=== PATIENT | female | born 1945 | race Caucasian/White ===

== ENCOUNTER 2018-06-27 12:03 | Outpatient (CLI) | payer MEDICARE, BC, SELFPAY ==
[2018-06-27 12:23] LABS: HCT 40.1 % (36.0-46.0); HGB 14.1 g/dL (12.0-15.5); Mean Corp. HGB Concentration 35.2 g/dL (32.0-36.0); Mean Corpuscular Hemoglobin 30.8 pg (27.0-33.0); Mean Corpuscular Volume 87.6 fL (80-95); Mean Platelet Volume 9.6 fL (8.0-11.0); Platelet Count 239 x1000/uL (130-400); RBC 4.58 m/cumm (4.00-5.20); RBC Distribution Width 12.1 % (11.7-14.6); White Blood Cell Count 6.37 k/cumm (4.4-10.8)
[2018-06-27 12:42] LABS: CREATININE 0.86 mg/dL (0.55-1.02); Cholesterol 255 mg/dL (50-200); Glucose 110 mg/dL (70-100); HDL Cholesterol 34 mg/dL (40-60); LDL CHOLESTEROL 140 mg/dL (<100); TSH 2.42 uIU/mL (0.358-3.74); Triglyceride 345 mg/dL (30-150)
[2018-06-28 13:37] LABS: ANA Interpretation Negative (NEGAT)
== END 2018-06-27 12:23 ==
PROVIDERS: PCP Family Medicine; Visit Provider Otolaryngology Otolaryngology/Facial Plastic Surgery
DX: R42 Dizziness and giddiness (principal); H69.83 Other specified disorders of Eustachian tube, bilateral; H93.13 Tinnitus, bilateral; H90.3 Sensorineural hearing loss, bilateral; E78.5 Hyperlipidemia, unspecified
CPT/HCPCS: 36415; 80061; 82947; 83721; 85027; 82565; 84443; 86038

== ENCOUNTER → 2018-07-08 08:53 | Outpatient (BNVA) | payer MEDICARE, BC, SELFPAY | PROVIDERS: PCP Family Medicine; Visit Provider Urology | DX: Z87.440 Personal history of urinary (tract) infections (principal) | CPT/HCPCS: 99213 ==

== ENCOUNTER 2018-08-17 10:58 | Outpatient (CLI) | payer MEDICARE, BC, SELFPAY ==
--- NOTE | 2018-08-17 10:45 | DI.RAD_ITS ---
SYMPTOM/DIAGNOSIS: SHOULDER AND HIP PAIN RIGHT SHOULDER: Two views. There are moderate hypertrophic changes seen at the acromioclavicular joint. There are mild degenerative changes seen at the greater tuberosity. The glenohumeral joint appears well maintained. The bones are intact. The soft tissues are unremarkable. IMPRESSION: Osteoarthritis of the right shoulder. RIGHT HIP: Two views. In the right hip, there are small osteophytes and subchondral sclerosis of the acetabulum. The hip joint is otherwise well maintained. At the inferior aspect of the image in the right femur, there is a question of a lucent lesion. Xray of the right femur is recommended for further evaluation. The soft tissues are unremarkable. Mild degenerative changes are also noted in the left hip. IMPRESSION: 1. Mild osteoarthritis of the right hip. 2. Question of a lucent lesion incompletely imaged in the right femoral shaft. Xray of the right femur is recommended for further evaluation.
== END 2018-08-17 11:18 ==
PROVIDERS: PCP Family Medicine; Referring Provider Family Medicine; Visit Provider Orthopaedic Surgery
DX: M25.511 Pain in right shoulder (principal); M25.551 Pain in right hip; M19.011 Primary osteoarthritis, right shoulder; M16.11 Unilateral primary osteoarthritis, right hip
CPT/HCPCS: 99201; 99213; 73030; 73502

== ENCOUNTER → 2018-09-15 09:04 | Outpatient (BNVA) | payer MEDICARE, BC, SELFPAY | PROVIDERS: PCP Family Medicine; Referring Provider Family Medicine; Visit Provider Orthopaedic Surgery | DX: M25.511 Pain in right shoulder (principal); R52 Pain, unspecified; M75.81 Other shoulder lesions, right shoulder; M70.61 Trochanteric bursitis, right hip | CPT/HCPCS: 20610; 99213; J1040 ==

== ENCOUNTER → 2018-10-27 09:06 | Outpatient (BNVA) | payer MEDICARE, BC, SELFPAY | PROVIDERS: PCP Family Medicine; Referring Provider Family Medicine; Visit Provider Orthopaedic Surgery | DX: M25.511 Pain in right shoulder (principal); M25.561 Pain in right knee; M25.512 Pain in left shoulder; M70.61 Trochanteric bursitis, right hip; M75.81 Other shoulder lesions, right shoulder; Z98.890 Other specified postprocedural states | CPT/HCPCS: 99213 ==

== ENCOUNTER 2018-10-31 01:03 | Outpatient (CLI) | payer MEDICARE, BC, SELFPAY ==
--- NOTE | 2018-10-31 13:27 | DI.CT_ITS ---
SYMPTOMS/DIAGNOSIS: THORACIC AORTIC ANEURYSM, LAST DIAMETER 4.2 CM W/O RUPTURE, I71.2 CT ANGIOGRAPHY OF THE CHEST: CT angiography was performed with multi slice acquisition and multi planar and 3D reconstruction. CT angiography of the chest was performed according to protocol. Comparison is 10/11/17. There is minimal atherosclerosis of the thoracic aorta. The transverse diameter of the ascending thoracic aorta is 4.3 cm. This compares with 4.2 cm on the prior examination. The heart size is within normal limits. No significant pericardial effusion is seen. No significant thoracic adenopathy is present. No pleural effusion or pneumothorax is identified. Bilateral thyroid nodules are seen. The largest is on the left and measures 1.1 x 1.2 cm. The central pulmonary arteries appear grossly unremarkable. There is a 2 mm noncalcified pulmonary nodule in the right upper lobe. This is unchanged compared to the prior examination from 10/11/17. No other pulmonary nodules are seen. No pulmonary infiltrates are present. The tracheobronchial tree is unremarkable. Mild degenerative changes are seen in the spine. IMPRESSION: 1. Stable 4.3 cm ascending thoracic aortic aneurysm. 2. Stable 2 mm pulmonary nodule in the right upper lobe. Follow up CT scan of the chest in one year to document stability of the nodule.
[2018-10-31 13:58] LABS: CREATININE 0.85 mg/dL (0.55-1.02)
[2018-10-31] MEDS: Omnipaque 350 MG/ML 100 ML BTL IJ (14:46)
== END 2018-10-31 01:23 ==
PROVIDERS: PCP Family Medicine; Visit Provider Family Medicine
DX: E78.5 Hyperlipidemia, unspecified (principal); I71.2 Thoracic aortic aneurysm, without rupture; R91.1 Solitary pulmonary nodule; E04.2 Nontoxic multinodular goiter
CPT/HCPCS: 71275; 82565; J3490

== ENCOUNTER 2018-11-03 01:21 | Outpatient (CLI) | payer MEDICARE, BC, SELFPAY ==
--- NOTE | 2018-11-03 10:46 | DI.MRI_ITS ---
SYMPTOM/DIAGNOSIS: RT LAT HIP PAIN AND MUSCLE WEAKNESS M70.61, TROCH BURSITIS RT HIP MRI PELVIS AND RIGHT HIP: T1, and FS T2 axial and coronal images were performed with the field of view including the entire pelvis. FS Proton density and FS T2 sagittal sequences were performed of the right hip. There are no plain films available for comparison. The marrow signal is normal. No hip joint effusion or trochanteric bursitis is seen. There is no abnormal signal in the muscles. There are ossicles bilaterally adjacent to the posterior acetabulum. The bladder is unremarkable. Diverticulosis is noted of the sigmoid colon. The patient appears to be status post hysterectomy. IMPRESSION: Negative MRI of the pelvis and right hip.
== END 2018-11-03 01:41 ==
PROVIDERS: PCP Family Medicine; Visit Provider Physician Assistant
DX: M70.61 Trochanteric bursitis, right hip (principal); M25.551 Pain in right hip; M62.81 Muscle weakness (generalized)
CPT/HCPCS: 73721

== ENCOUNTER → 2018-11-09 10:33 | Outpatient (BNVA) | payer MEDICARE, BC, SELFPAY | PROVIDERS: PCP Family Medicine; Referring Provider Family Medicine; Visit Provider Orthopaedic Surgery | DX: M70.61 Trochanteric bursitis, right hip (principal) | CPT/HCPCS: 99213 ==

== ENCOUNTER 2018-11-18 10:35 | Outpatient (CLI) | payer MEDICARE, BC, SELFPAY ==
--- NOTE | 2018-11-18 21:54 | HPE_ITS ---
Date of service: 11/18/18 Assessment and Plan (1) Trochanteric bursitis of right hip: Current visit: Yes Status: Chronic Trochanteric bursa debridement of the right hip with IT band lengthening. Details of surgery were discussed with patient as well as risks and pertinent anatomy. All questions were answered. History of Present Illness Chief Complaint: Right hip pain Narrative: Suzanna is a 73-year-old female who comes in today for a preop history and physical for a right trochanteric bursa debridement. She has been complaining of this right hip pain for over a year now, but most recently has increased pretty significantly so it is getting the way of her normal activities. She has attempted conservative treatment includ ing anti-inflammatories and rest. She also has had an injection in the area which she states did not give her any relief. She has pain when walking on uneven ground, as well as going up and down stairs, specifically up stairs. She also has pain when standing from a seated position. She also has pain when she lies directly on that side in bed. She has had an MRI which did not show any abnormal pathology around the abductors of the hip, suggesting that there is no tendon tearing in the area. Because she has failed conservative treatment, Dr. Styles does offer a debridement of the trochanteric bursa on the right hip with IT band lengthening, and she agrees with this plan and is anxious to proceed. Pertinent Surgical Information Suzanna has a history of a systolic murmur that has been evaluated and determined to be mitral valve prolapse. She also is being followed for thoracic aortic aneurysm which is being followed with imaging, specifically CT scans. Her most recent CT scan revealed a very small increase in the size of the aortic aneurysm to 4.2 cm in October of last year, increasing from 4 cm a year previously. Patient denies history of hypertension, CVA, [place], angina, asthma, COPD, renal or liver disorders, hepatitis, bleeding disorders, diabetes, immune or thyroid disorders. No complications from anesthesia. Review of Systems Constitutional Denies fever(s) ENT Denies dizziness and Denies sore throat Cardiovascular Denies chest pain, Denies palpitations and Denies dyspnea Respiratory Denies cough and Denies dyspnea Gastrointestinal Denies abdominal pain, Denies melena, Denies hematochezia, Denies diarrhea, Denies nausea and Denies vomiting Genitourinary Denies hematuria and Denies dysuria Neurologic Denies dizziness Endocrine Denies palpitations [facility] Medical History (Updated 11/18/18 @ 22:04 by ANDRE Madden) History of retinal detachment (Inactive 03/11/01) Hyperlipidemia (Acute 03/11/00) Mitral valve regurgitation (Acute) Thoracic aortic aneurysm without rupture (Acute) Surgical History (Updated 11/18/18 @ 22:04 by ANDRE Madden) Abdominal hysterectomy Arthroplasty of knee (~2001) Eye surgery History of tonsillectomy and adenoidectomy (Acute) Family History Mother Personal history of malignant neoplasm Father TB (pulmonary tuberculosis) Alcohol abuse Emphysema lung Smoker Brother No problems noted. Grandfather No problems noted. Grandfather Stroke Grandmother No problems noted. Grandmother No problems noted. Social History Smoking/Tobacco Use Status: Never Drug use: Never Substance use type: does not use Do you feel safe at home: Yes Do you feel safe in your relationship?: Yes Meds Home Medications Medication Instructions Recorded Confirmed Type albuterol sulfate [Proair Hfa] 1 - 2 puff INHALATION QID PRN #1 10/18/17 11/18/18 History inhaler olopatadine [Patanol 0.1%] 1 - 2 drp OPHTHALMIC BID PRN #1 drp 10/18/17 11/18/18 History meclizine 12.5 mg tablet 12.5 - 25 mg PO BID-TID PRN #42 tab 06/29/18 11/18/18 Rx ibuprofen 200 mg capsule 200 mg PO BID-TID PRN cap 10/27/18 11/18/18 History loratadine [Claritin] 10 mg PO DAILY 11/18/18 11/18/18 History Allergies Allergy/AdvReac Type Severity Reaction Status Date / Time No Known Allergies Allergy Unverified 11/09/18 11:04 Exam HENMI Head: normocephalic and atraumatic General nose exam: no nasal discharge Throat: uvula midline and no uvular edema Other: soft palate rises symmetrically, no erythema Eyes Conjunctivae: conjunctivae normal Sclera: sclerae normal Pupils: PERRL Resp Effort & Inspection: normal respiratory effort Auscultation: clear to auscultation bilaterally and no wheezes Cardio Rate: regular rate Rhythm: regular rhythm Heart Sounds: S1 normal, S2 normal and murmur systolic at the left sternal border GI Palpation: soft, no hepatosplenomegaly and nontender Auscultation: normal bowel sounds
== END 2018-11-18 10:55 ==
PROVIDERS: PCP Family Medicine; Visit Provider Orthopaedic Surgery
DX: Z01.818 Encounter for other preprocedural examination (principal); M70.61 Trochanteric bursitis, right hip
CPT/HCPCS: NC

== ENCOUNTER 2018-11-21 07:01 | Day surgery (SDC) | payer MEDICARE, BC, SELFPAY ==
[2018-11-21 07:17] VITALS: BP 137/87; PULSE 73; RESP 16; TEMP 36.2; O2SAT 98
[2018-11-21] MEDS: Lactated Ringers 1,000 ML 80 ML IV (07:45)
[2018-11-21] MEDS: ceFAZolin 2 GM/50 ML BAG IVPB (08:06)
--- NOTE | 2018-11-21 08:51 | PDOC.DSDIS_ITS ---
Discharge Plan Disposition Patient Disposition: HOME Condition: Good Discharge Details Reason For Visit: TENOTOMY I-T BAND R Attending Provider: John Styles Primary Care Provider: Karma Massey Home Meds and New Rx's Prescriptions: New ibuprofen 600 mg tablet 600 mg PO TID Qty: 60 RF: 0 hydrocodone-acetaminophen 5-325 mg tablet 1 tab PO Q6H PRN (Reason: pain) Qty: 14 RF: 0 Continued meclizine 12.5 mg tablet 12.5 - 25 mg PO BID-TID PRN (Reason: dizziness) Qty: 42 RF: 0 olopatadine [Patanol] 5 ML drops 1 - 2 drp Ophthalmic BID PRNQty: 1 RF: 2 albuterol sulfate [ProAir HFA] 8.5 GM HFA aerosol inhaler 1 - 2 puff Inhalation QID PRNQty: 1 RF: 4 loratadine [Claritin] 10 mg Tablet 10 mg PO DAILY RF: 0 Discontinued ibuprofen 200 mg capsule 200 mg PO BID-TID PRNRF: 0 Discharge Instructions Additional Instructions: When lying on L side, keep a pillow between your knees. Apply ice bag to R hip (OVER DRESSINGS) 4 times/day for 1 hour each time for next 72 hours.to decrease swelling and pain. Crutches to walk. Put as much weight on R leg as your pain allows. May remove dressings, shower, and get danielle wet after 72 hours. Cover danielle with light gauze dressing so they don't catch on your pants. Walk as much as your discomfort allows. Follow up with in 2 weeks. Take ibuprofen 3 times/day to decrease swelling and inflammation. Take hydrocodone for breakthru pain, if needed. Outpatient physical therapy on Wednesday. Referrals: John Styles MD [ [facility] STAFF PHYSICIAN] - (f/u in 2 weeks.) Equipment/Supplies: Partial Weight Bearing Crutches Activity:: Activity as Tolerated Remove Dressings/Wound Care:: 72 hours Shower/Bathe:: 72 hours Diet:: As Tolerated Discharge Orders Discharge Orders: Discharge Order (Routine); Ordered 11/21/18 Ordered By: John Styles DS: Diagnosis Discharge Diagnosis (1) Trochanteric bursitis of right hip: Status: Chronic
[2018-11-21 09:08] VITALS: BP 100/48; PULSE 67; RESP 14; TEMP 36.8; O2SAT 99
[2018-11-21 09:13] VITALS: BP 100/48; PULSE 69; RESP 15; TEMP 36.8; O2SAT 97
[2018-11-21 09:18] VITALS: BP 100/48; PULSE 69; RESP 15; TEMP 36.8; O2SAT 97
[2018-11-21 09:32] VITALS: BP 95/60; PULSE 69; RESP 14; TEMP 36.7; O2SAT 95
[2018-11-21 10:20] VITALS: BP 120/66; PULSE 60; RESP 18; TEMP 35.9; O2SAT 18
--- NOTE | 2018-11-21 15:37 | ROE_ITS ---
DATE OF PROCEDURE: November 21, 2018 PREOPERATIVE DIAGNOSIS: Chronic trochanteric bursitis, right. POSTOPERATIVE DIAGNOSIS: Same. PROCEDURE: Tenotomy iliotibial band, right hip with excision of the trochanteric bursa on the right. ANESTHESIA: General, Elijah Rodas CRNA SURGEON: John Styles M.D. MISSILE PAD MECHANIC: Cheli Madden INDICATIONS: This is a 73-year-old white female with chronic trochanteric bursitis on the right that has not responded to conservative treatment. She's obtained no long-lasting relief from anti-inflam matory medications, physical therapy and stretching and steroid injections. Because of a continued p ain which is affecting sleep and activities of daily living, surgery was recommended. I recommended excision of the trochanteric bursa with iliotibial band tenotomy to alleviate her pain. The risks an d complications of the procedure were explained to the patient in detail preoperatively. PROCEDURE: The patient was taken to the Operating Room on 11/21/18. She was placed supine on the ope rating table and a general anesthetic was administered. She was then turned to the right lateral pos ition on the operating table. The position was maintained with a pneumatic beanbag. The proximal fe mur and trochanter were prepped and block draped in the usual sterile fashion. A longitudinal incision was made beginning at the proximal tip of the trochanter, extending distally about five inches. The incision was carried through the skin and subcu to the iliotibial band. Subc utaneous veins were cauterized. The iliotibial band was incised longitudinally, exposing the trochan teric bursa. The trochanteric bursa was then excised. I then placed my finger between the IT band a nd the trochanter. At the point of maximum tightness, I performed a transverse tenotomy anterior and posterior and perpendicular to the vertical incision in the IT band. I then closed the vertical inc ision in the IT band with interrupted [id number] sutures of #1 Vicryl suture material. I left t he transverse tenotomy unclosed and open. The wound was irrigated with Betadine and saline solution. The wound margins were then infiltrated with 0.5% Marcaine with an epinephrine solution. The subcu was approximated with interrupted #2-0 Vicryl sutures. The skin edges were approximated with skin s taples. The wound was dressed with Xeroform gauze, sterile gauze 4x4's, ABD pad and taped with foam tape for a light pressure dressing. The patient was turned supine on the operating table; her anesth esia was reversed without complication. Blood loss was minimal. She was discharged to the recovery room in good condition. The patient was discharged home from the Day Surgery Unit when fully recovered from her general anest hesia. She was given instructions to apply ice to her right hip four times a day for an hour each ti me for the next 72 hours. She is to keep the dressings dry and intact for 72 hours. After 72 hours she may remove her dressings, shower and get her incision wet. After showering she is to cover the s taples with a light gauze dressing so they don't catch on her pants. She is to uses crutches to walk , weightbearing as tolerated to the right leg. She will begin outpatient physical therapy for her ri ght hip starting on or Wednesday of this week. She was given a prescription for inflammation o f ibuprofen 600 mg p.o. t.i.d. for ten days and a prescription for breakthrough pain of Oxycodone wit h APAP 5/325, one tablet every six hours, as needed. She will follow-up with me in two weeks.
== END 2018-11-21 10:40 | disposition home or self-care (01) ==
PROVIDERS: PCP Family Medicine; Visit Provider Orthopaedic Surgery
PROC: (CPT 27062; principal; 2018-11-21 08:15)
PROC: (CPT 27062; 2018-11-21 08:15)
DX: M70.61 Trochanteric bursitis, right hip (principal); M25.551 Pain in right hip; I34.0 Nonrheumatic mitral (valve) insufficiency
CPT/HCPCS: 27062; 27305; J0690; J1100; J1885; J2405

== ENCOUNTER → 2018-12-06 10:09 | Outpatient (BNVA) | payer MEDICARE, BC, SELFPAY | PROVIDERS: PCP Family Medicine; Referring Provider Family Medicine; Visit Provider Orthopaedic Surgery | DX: Z47.89 Encounter for other orthopedic aftercare (principal); M79.604 Pain in right leg ==

== ENCOUNTER 2019-01-04 01:04 | Outpatient (CLI) | payer MEDICARE, BC, SELFPAY ==
--- NOTE | 2019-01-04 12:30 | DI.US_ITS ---
EXAM: US THYROID CLINICAL HISTORY: thyroid nodules on chest CT, E04.2. TECHNIQUE: Ultrasound was performed using standard protocol. COMPARISON: There are no prior studies for comparison. FINDINGS: The right thyroid lobe measures 3.9 x 1.2 x 2.0 cm. Multiple nodules are demonstrated. In the upper p ole, there is a 1.1 x 0.9 x 1.2 cm nodule. In the midpole, there is a 7 x 6 x 7 mm vascular nodule an d an adjacent more medially located nodule measures 10 x 5 x 12 mm. In the lower pole, there is a a v ascular 9 x 5 x 7 mm nodule. The isthmus measures 4 mm in thickness. Tiny nodules are identified. T he Left thyroid lobe measures 4.4 x 1.2 x 1.53 cm. There is a cystic avascular nodule in the upper p ole measuring 4.3 x 3.1 x 3.2 cm. A 2nd nodule more inferiorly located in the upper pole is complex a nd vascular and measures 7.4 x 4.1 x 7.3 mm. In the lower pole, there is a 13 x 10.4 x 9 mm cystic a vascular nodule. Several nodules are identified in the lower pole of the left thyroid lobe, the larg est of which measures 6 x 5 x 5.3 mm. IMPRESSION: Findings consistent with a multinodular thyroid gland.
== END 2019-01-04 01:24 ==
PROVIDERS: PCP Family Medicine; Visit Provider Family Medicine
DX: E04.2 Nontoxic multinodular goiter (principal)
CPT/HCPCS: 76536

== ENCOUNTER → 2019-01-10 09:00 | Outpatient (BNVA) | payer MEDICARE, BC, SELFPAY | PROVIDERS: PCP Family Medicine; Referring Provider Family Medicine; Visit Provider Orthopaedic Surgery | DX: Z47.89 Encounter for other orthopedic aftercare (principal) ==

== ENCOUNTER → 2019-03-21 09:03 | Outpatient (BNVA) | payer MEDICARE, BC, SELFPAY | PROVIDERS: PCP Family Medicine; Referring Provider Family Medicine; Visit Provider Orthopaedic Surgery | DX: M70.61 Trochanteric bursitis, right hip (principal); Z47.89 Encounter for other orthopedic aftercare; M76.31 Iliotibial band syndrome, right leg | CPT/HCPCS: 99213 ==

== ENCOUNTER → 2019-05-02 09:05 | Outpatient (BNVA) | payer MEDICARE, BC, SELFPAY | PROVIDERS: PCP Family Medicine; Referring Provider Family Medicine; Visit Provider Orthopaedic Surgery | DX: M70.61 Trochanteric bursitis, right hip (principal) | CPT/HCPCS: 99213 ==

== ENCOUNTER → 2019-05-17 10:51 | Outpatient (BNVA) | payer MEDICARE, BC, SELFPAY | PROVIDERS: PCP Family Medicine; Referring Provider Family Medicine; Visit Provider Orthopaedic Surgery | DX: M79.604 Pain in right leg (principal); Z98.890 Other specified postprocedural states | CPT/HCPCS: 99213 ==

== ENCOUNTER 2019-05-19 11:34 | Outpatient (CLI) | payer MEDICARE, BC, SELFPAY ==
[2019-05-19 12:52] LABS: CREATININE 1.02 mg/dL (0.55-1.02); Estimated GFR 52.97 (mL/min/1.73m2)
== END 2019-05-19 11:54 ==
PROVIDERS: PCP Family Medicine; Visit Provider Orthopaedic Surgery
DX: M79.661 Pain in right lower leg; T50.8X5A Adverse effect of diagnostic agents, initial encounter
CPT/HCPCS: 36415; 82565

== ENCOUNTER 2019-05-23 01:02 | Outpatient (CLI) | payer MEDICARE, BC, SELFPAY ==
--- NOTE | 2019-05-23 11:23 | DI.CT_ITS ---
EXAM: CT LOWER EXTREMITY RT W CLINICAL HISTORY: r/o abscess PAIN RT THIGH M79.651 TECHNIQUE: Images were performed from the mid pelvis through the proximal tibia and fibula. FINDINGS: There is some atrophy of the gluteus nessa muscle. There is no evidence of an abscess. There is no evidence of fracture or soft tissue swelling. There are mild degenerative changes of the right hip. D egenerative changes are also seen at the knee. There is mild femoral artery calcification but no sign ificant stenosis. There are no bony erosions. Diverticulosis is incidentally noted in the sigmoid col on. The patient is status post hysterectomy. The bladder appears normal. IMPRESSION: No evidence of abscess, seroma or osteomyelitis.
[2019-05-23] MEDS: Omnipaque 350 MG/ML 100 ML BTL IJ (11:55)
== END 2019-05-23 01:22 ==
PROVIDERS: PCP Family Medicine; Visit Provider Orthopaedic Surgery
DX: M79.651 Pain in right thigh (principal); M16.11 Unilateral primary osteoarthritis, right hip; M17.11 Unilateral primary osteoarthritis, right knee; M62.89 Other specified disorders of muscle
CPT/HCPCS: 73701; J3490

== ENCOUNTER → 2019-06-14 09:00 | Outpatient (BNVA) | payer MEDICARE, BC, SELFPAY | PROVIDERS: PCP Family Medicine; Referring Provider Family Medicine; Visit Provider Orthopaedic Surgery | DX: M79.651 Pain in right thigh (principal); Z98.890 Other specified postprocedural states | CPT/HCPCS: 99213 ==

== ENCOUNTER 2019-07-31 01:52 | Outpatient (CLI) | payer MEDICARE, BC, SELFPAY ==
--- NOTE | 2019-07-31 | DI.MRI_ITS ---
EXAM: MR LUMBAR SPINE WO CLINICAL HISTORY: LUMBAR RADICULOPATHY,RT M54.16. TECHNIQUE: Multiplanar multisequence MRI was performed. COMPARISON: No exams were available for comparison FINDINGS: MR examination of the lumbosacral spine was performed according to the usual protocol. There are per idiscal vertebral signal changes at L3-4 and L4-5 consistent with disc degeneration. There are prominent facet hypertrophic changes at L5-S1 bilaterally, and to a lesser degree at L4-5 a nd L3-4. The conus medullaris appears intact. No significant findings at L1-2 or L2-3. At L3-4 there is moderate central canal spinal stenosis secondary to facet hypertrophy and prominence of the ligamentum flavum. No disc herniation. Although there is mild disc bulge. At L4-5 there is narrowing of the right lateral recess secondary to facet hypertrophy. No gross neur al foraminal narrowing, no significant disc herniation. At L5-S1 apart from the aforementioned very prominent hypertrophic facet changes, there are no signif icant findings. No disc herniation seen. No neural foraminal stenosis identified at the levels examined. IMPRESSION: Moderate central canal spinal stenosis at L3-4 secondary to marked facet hypertrophy, prominence of t he ligamentum flavum, and a mild disc bulge. Multi level facet hypertrophic degenerative changes as described. DATA REPOSITORY:
== END 2019-07-31 02:12 ==
PROVIDERS: PCP Family Medicine; Visit Provider Orthopaedic Surgery
DX: M54.16 Radiculopathy, lumbar region (principal); M51.16 Intervertebral disc disorders with radiculopathy, lumbar region; M47.26 Other spondylosis with radiculopathy, lumbar region
CPT/HCPCS: 72148

== ENCOUNTER 2019-10-26 01:28 | Outpatient (CLI) | payer MEDICARE, BC, SELFPAY ==
--- NOTE | 2019-10-26 07:45 | DI.CT_ITS ---
EXAM: CT THORAX CTA CLINICAL HISTORY: thoracic AA, 4.3cm in /asymptomatic,I71.2 TECHNIQUE: COMPARISON: CT CT THORAX CTA from 10/31/2018 FINDINGS: CT angiography of the chest was performed with bolus infusion of 100 cc of Omnipaque 350. Images obtained through the upper abdomen show unremarkable appearance of visualized portions the mirta er, spleen pancreas, gallbladder and bile ducts, adrenals, and kidneys within incidental tiny left up per pole renal cyst. Prior scan showed of 42 millimeter in diameter ectatic ascending thoracic aorta, unchanged on today's examination. No aortic dissection. No pulmonary embolic disease. No mediastinal or hilar adenopat hy. Lungs are predominantly clear. A 4 millimeter pleural-based right upper lobe anterior nodule is unch anged from prior study. Previously noted 2 millimeter right upper lobe intrapulmonary nodule is no l onger visible. No pleural effusion seen. IMPRESSION: Mild thoracic aortic ectasia at 42 millimeters. 4 millimeter pleural-based right upper lobe pulmonary nodule, stable, no follow up necessary in a non smoker.
[2019-10-26 09:36] LABS: Anion Gap 7.3 mmol/L (3-11); BUN 19 mg/dL (7-18); CO2 27.7 mmol/L (21.0-32.0); CREATININE 0.83 mg/dL (0.55-1.02); Calcium 9.5 mg/dL (8.5-10.1); Calculated LDL 180 mg/dL (<100); Chloride 105 mmol/L (98-107); Cholesterol 266 mg/dL (<200); Glucose 97 mg/dL (74-106); HDL Cholesterol 38 mg/dL (40-60); Potassium 3.9 mmol/L (3.5-5.1); Sodium 140 mmol/L (136-145); TSH 1.77 uIU/mL (0.36-3.74); Triglyceride 240 mg/dL (<150)
[2019-10-26] MEDS: Omnipaque 350 MG/ML 100 ML BTL IV (09:52)
== END 2019-10-26 01:48 ==
PROVIDERS: PCP Family Medicine; Visit Provider Family Medicine
DX: E04.2 Nontoxic multinodular goiter (principal); I71.2 Thoracic aortic aneurysm, without rupture; E78.89 Other lipoprotein metabolism disorders; R91.1 Solitary pulmonary nodule
CPT/HCPCS: 71275; 80048; 80061; 84443; J3490

== ENCOUNTER → 2020-01-11 09:58 | Outpatient (BNVA) | payer MEDICARE, BC, SELFPAY | PROVIDERS: PCP Family Medicine; Referring Provider Family Medicine; Visit Provider Physical Therapy Assistant | DX: Z12.11 Encounter for screening for malignant neoplasm of colon (principal) ==

== ENCOUNTER 2020-01-29 07:22 | Day surgery (SDC) | payer MEDICARE, BC, SELFPAY ==
--- NOTE | 2020-01-29 06:40 | W.COLOREPORT ---
Date of service: 01/29/20 Time of Service: : Colonoscopy Report Date of procedure: 01/29/20 Pre-op diagnosis general: Colon Cancer Screening Post-op diagnosis procedure note: other (Adenomatous polyps, diverticulosis) Procedure: Colonoscopy with polypectomy Surgeon: Beverly Jain Anesthesia proc note operative: other (General/ASA 2/ Abiola Lozano CRNA) Estimated blood loss (mL): 10 Pathology: other (cecal polyps, ascending polyps, Transverse polyp, rectal polyp) Complications: None Disposition: same day Indications: The patient is here for Colonoscopy pre-op. Her last screening was in 2008 and was unremarkable. She has no family history of colon cancer. She has not had any bowel habit changes. -Discussed colonoscopy bowel prep as well as the procedure. Discussed possible complications of the procedure to include bleeding, pain, perforation, missed small lesion/polyp, sore throat, aspiration and adverse reaction to the medications. Questions were answered to patient?s satisfaction. No guarantees were implied or given. Prep: Miralax/Dulcolax Procedure Start Time: : Procedure End Time: 09:03 Retraction Time: 28 minutes Findings: Large sessile polyp in the ascending colon concerning for high grade dysplacia or cancer- Tattoo applied. 2 small sessile polyps most likely pre-malignant Pedunculated rectal polyp also an adenoma Procedure Description: After informed consent was obtained the patient was taken to the procedure room and placed in a left decubitous position. Monitors were applied and a time out was done. The patients name, date of , procedure, allergies to medications and metal in their body was reviewed. The patient was then sedated. Once sedated and comfortable a rectal exam was done. External exam was normal. Internal exam revealed a normal sphincter tone and no palpable masses. The scope was then introduced and retro-flexed. No internal hemorrhoids were identified. The scope was then advanced to the cecum with some difficulty due to a tortious colon in the sigmoid descending colon. The ileocecal valve and appendiceal orifice were identified. The prep was adequate. The scope was then slowly retracted over 28 minutes back into the rectum. Polyps were removed with cold forceps in the cecum, ascening colon and with a hot snare in the ascending colon and rectum. The ascending colon polyp was large and suspicious for dysplacia. The area was tattooed after the polyp was removed. There was also mild diverticulosis of the sigmoid colon. The scope was removed and the patient was woken up and taken back to Same day surgery in stable condition. The patient tolerated the procedure well and there were no immediate complications. Follow up:will depend on final pathology.
--- NOTE | 2020-01-29 06:41 | PDOC.DSDIS_ITS ---
Discharge Plan Disposition Patient Disposition: HOME Condition: Good Discharge Details Reason For Visit: Colonoscopy Attending Provider: Beverly Jain Primary Care Provider: Karma Massey Home Meds and New Rx's Prescriptions: Continued multivitamin Capsule 1 cap PO DAILY RF: 0 flaxseed oil [[place]-3 Flaxseed Oil] 1,000 mg capsule 1,000 mg PO DAILY RF: 0 gabapentin 100 mg capsule 100 mg PO TID RF: 0 ibuprofen 200 mg tablet 200 mg PO Q6H PRNRF: 0 ferrous sulfate 325 mg (65 mg iron) tablet 325 mg PO DAILY Qty: 90 RF: 4 olopatadine [Patanol] 5 ML drops 1 - 2 drp Ophthalmic BID PRNQty: 1 RF: 2 albuterol sulfate [ProAir HFA] 8.5 GM HFA aerosol inhaler 1 - 2 puff Inhalation QID PRNQty: 1 RF: 4 loratadine [Claritin] 10 mg Tablet 10 mg PO DAILY RF: 0 Discontinued polyethylene glycol 3350 17 gram/dose powder 238 g PO ONCE Qty: 238 RF: 0 bisacodyl [Dulcolax (bisacodyl)] 5 mg tablet,delayed release (DR/EC) 5 mg PO ONCE Qty: 4 RF: 0 Discharge Instructions Instructions: Diverticulosis (DC), Colorectal Polyps (DC) Additional Instructions: Findings:1. 4 polyps all pre-cancerous appearing 2. Mild diverticulosis Follow up: will depend on final pathology (this will take 3 days to 1 week) Please call if you develop: fevers >101.5 Nausea or Vomiting Abdominal pain that is not transient DAY SURGERY UNIT POST ENDOSCOPY INSTRUCTIONS 1. Because there will be medication in your system for the next 24 hours, you may feel a little sleepy. Your coordination will be affected. Therefore: a. Do not drive or operate dangerous equipment for 24 hours. b. Do not drink alcohol beverages for 24 hours (not even beer). c. Plan to go home and rest for the day. 2. Generally there are no restrictions on your activity after a day or so has gone by, but you may feel a bit fatigued for a few days. 3 After you arrive home you may have a light meal and return to a normal diet as you can tolerate it without feeling sick to your stomach. 4. After surgery, you may feel pain or discomfort. This should be only transient, but if it persists please contact your doctor. 5. If there are any questions regarding the findings of your procedure, please feel free to contact your doctor. 6. If you are unable to contact your doctor with a problem, contact the hospital at [phone]. 7. Continue all your regular medications unless directed otherwise. I understand the above instructions and have no questions. Signature of Patient or Responsible Adult Escort Date/Time Name of Responsible Adult Escort Signature of Nurse Date/Time Activity:: Activity as Tolerated Diet:: High Fiber diet Discharge Orders Discharge Orders: Discharge Order (Routine); Ordered 01/29/20 Ordered By: Beverly Jain
[2020-01-29 07:35] VITALS: BP 143/110; PULSE 79; RESP 18; TEMP 36.3; O2SAT 97
[2020-01-29] MEDS: Lactated Ringers 1,000 ML 80 ML IV (08:06)
--- NOTE | 2020-01-29 08:38 | BOWEL_PTH ---
PATIENT: Suzanna Huntley LOC: [facility] U#:[id number] AGE/SX: 74/F ROOM: RE01/29/[address]: Beverly Jain MD : [id number] BED: DIS: 01/29/2020 SPEC #: [id number] RECD: 01/29/20 12:42 STATUS: DARYL REQ #: [id number] SARAH: 01/29/20 08:[address]: Beverly Jain DEPT: Surgical Specimen RECD BY: Ying Osman ENTERED: 01/29/20 12:44 SP TYPE: Bowel OTHR DR: Karma Massey MD Tissues: 1 - BIOPSY BOWEL 2 - BIOPSY BOWEL 3 - BIOPSY BOWEL 4 - BIOPSY BOWEL Procedures: GROSS AND MICRO LEVEL 4 Comments: [id number]
[2020-01-29] MEDS: Endoscopic Tattoo 5 ML SYR IJ (08:51)
[2020-01-29 09:40] VITALS: BP 132/70; PULSE 60; RESP 17; TEMP 36.6; O2SAT 95
== END 2020-01-29 10:39 | disposition home or self-care (01) ==
LOC: SUR 07:22
PROVIDERS: PCP Family Medicine; Visit Provider Surgery
PROC: 0DJD8ZZ Inspection of Lower Intestinal Tract, Via Natural or Artificial Opening Endoscopic (ICD-10-PCS; CPT 45378; principal; 2020-01-29 08:30)
DX: Z12.11 Encounter for screening for malignant neoplasm of colon (principal); D12.2 Benign neoplasm of ascending colon; D12.0 Benign neoplasm of cecum; D12.3 Benign neoplasm of transverse colon; D12.8 Benign neoplasm of rectum; K57.30 Diverticulosis of large intestine without perforation or abscess without bleeding
CPT/HCPCS: 45385; 45380; 45381; 88305; J2001

== ENCOUNTER 2020-03-08 03:00 | Outpatient (CLI) | payer MEDICARE, BC, SELFPAY ==
[2020-03-08 08:11] LABS: Calculated LDL 185 mg/dL (<100); Cholesterol 248 mg/dL (<200); HDL Cholesterol 39 mg/dL (40-60); Triglyceride 123 mg/dL (<150)
== END 2020-03-08 03:20 ==
PROVIDERS: PCP Family Medicine; Visit Provider Family Medicine
DX: E78.5 Hyperlipidemia, unspecified (principal)
CPT/HCPCS: 36415; 80061

== ENCOUNTER 2020-03-25 21:57 | Outpatient (REF) | payer MEDICARE, BC, SELFPAY | END 2020-03-25 22:17 | LOC: LBN 21:57 | PROVIDERS: PCP Family Medicine; Visit Provider Nurse Practitioner Family | DX: N39.0 Urinary tract infection, site not specified (principal) | CPT/HCPCS: 87086 ==

== ENCOUNTER 2020-10-14 10:51 | Emergency (ER) | payer MEDICARE, BC, SELFPAY ==
--- NOTE | 2020-10-14 10:53 | W.ED.GENAD ---
Discharge Plan Disposition Patient Disposition: HOME Condition: Improving Discharge Details Clinical Impression: Left knee pain, Arthritis Primary Care Provider: Karma Massey ED Provider: Lexus Longoria Home Meds and New Rx's Prescriptions: New oxycodone 5 mg tablet 5 mg PO Q6H PRN (Reason: pain) Qty: 7 RF: 0 Continued multivitamin Capsule 1 cap PO DAILY RF: 0 flaxseed oil [Fulda-3 Flaxseed Oil] 1,000 mg capsule 1,000 mg PO DAILY RF: 0 gabapentin 100 mg capsule 100 mg PO TID RF: 0 ibuprofen 200 mg tablet 200 mg PO Q6H PRNRF: 0 ferrous sulfate 325 mg (65 mg iron) tablet 325 mg PO DAILY Qty: 90 RF: 4 olopatadine [Patanol] 5 ML drops 1 - 2 drp Ophthalmic BID PRNQty: 1 RF: 2 albuterol sulfate [ProAir HFA] 8.5 GM HFA aerosol inhaler 1 - 2 puff Inhalation QID PRNQty: 1 RF: 4 atorvastatin 10 mg tablet 10 mg PO DAILY Qty: 30 RF: 6 Discharge Instructions Instructions: Knee Pain (ED), Arthritis (ED) Additional Instructions: Rest, ice and elevate your left leg as much as possible. Use your cane to help with weightbearing and ambulation. Continue to alternate tylenol and motrin as needed and directed for pain. Take the oxycodone for pain not relieved with Tylenol or Motrin. You have been placed on the orthopedic follow-up list to hopefully move your follow-up appointment earlier than next month. Please be sure to call Dr. Vallecillo's office tomorrow morning to see if you can schedule an earlier appointment. Return immediately to the emergency department if you develop any worsening or new concerning symptoms. Referrals: Xavier Vallecillo MD [ [facility] STAFF PHYSICIAN] - Discharge Data Discharge Date/Time-TO BE ENTERED AT DEPARTURE: 10/14/20 13:13 Discharge Physician: Lexus Longoria Medical Decision Making 74-year-old female with a history of left knee arthritis and left knee medial meniscus repair 25 years ago presents with left knee pain for the past month, worse after steroid injection at [facility]. Patient was sent from the [facility] for concern for a red and hot knee per their report. Patient's left knee is not erythematous or hot to touch. She mainly complains of pain in the medial knee. Questionable positive Oscar's test medially. She has no significant pain with valgus or varus stress and anterior and posterior drawer test negative. There is no obvious ligamentous laxity. She has neurovascular intact. Presentation does not appear consistent with septic joint or gout. Suspect most likely arthritis, also consider medial meniscus injury. Patient states she does not want another steroid injection in her knee as she feels that it became significantly worse with limitation of function since then. Discussed that at this point, we can obtain a knee x-ray and give a dose of oxycodone for pain relief. X-ray notes moderate degenerative changes on the medial aspect. Patient does not want Jann wrap or immobilizer as extension keeps her more uncomfortable. She has a cane and crutches at home. She is advised to continue ice as needed and directed. We will send with oxycodone to take as needed and directed. Patient placed on orthopedic follow-up list. Medical Records Medical records reviewed: Yes I reviewed the patient's medical records. Imaging Data Radiologic Study: Radiologist's impression: XR Left knee. Views: 3 views. COMPARISON: No relevant prior studies available. FINDINGS: Bones/joints: Moderate narrowing and spurring of the left medial joint compartment. Moderate narrowing of the left anterior joint compartment, with moderate patellar spurring. Small marginal osteophytes in the lateral joint compartment. No acute or suspicious osseous abnormalities. No joint effusion. Soft tissues: Normal. IMPRESSION: 1. 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 2. Moderate osteoarthritis of the left anterior joint compartment. HPI General Mode of arrival: ambulatory. Date/Time Provider Initiated Documentation: 10/14/20 10:52. Limitations to Documentation: no limitations. Information obtained by: patient. HPI Narrative: Patient is a 74-year-old female with a history of arthritis, previous medial meniscus repair presents with left knee pain for the past few months. Patient states she was seen at [facility] 1 month ago for knee pain for 2 months at that time and had a steroid injection. She states the pain has been significantly worse since then with limitation of weightbearing and walking due to pain. She states she mainly tries to rest her knee and keep it flexed. She has been taking ibuprofen as needed. She denies any new injury, fever, fall or direct blunt trauma to her knee. She states she has been trying to contact outside clinic for reevaluation but has been unable to get in. She states she does have an appointment scheduled with Dr. Vallecillo for November 18 for her knee pain but states she could not wait until then due to persistent worsening pain. Related Data Home Medications Medication Instructions Recorded Confirmed albuterol sulfate [ProAir HFA] 1 - 2 puff INHALATION QID PRN #1 10/18/17 03/25/20 inhaler olopatadine [Patanol] 1 - 2 drp OPHTHALMIC BID PRN #1 drp 10/18/17 03/25/20 ferrous sulfate 325 mg (65 mg 325 mg PO DAILY #90 tab 11/01/19 03/25/20 iron) tablet gabapentin 100 mg capsule 100 mg PO TID 11/01/19 10/14/20 ibuprofen 200 mg tablet 200 mg PO Q6H PRN 11/01/19 10/14/20 flaxseed oil 1,000 mg capsule 1,000 mg PO DAILY 01/11/20 10/14/20 multivitamin 1 cap PO DAILY 01/11/20 10/14/20 atorvastatin 10 mg tablet 10 mg PO DAILY #30 tab 06/27/20 oxycodone 5 mg PO Q6H PRN #7 tab 10/14/20 Previous Rx's Medication Instructions Recorded ferrous sulfate 325 mg (65 mg 325 mg PO DAILY #90 tab 11/01/19 iron) tablet atorvastatin 10 mg tablet 10 mg PO DAILY #30 tab 06/27/20 oxycodone 5 mg PO Q6H PRN #7 tab 10/14/20 Allergies Allergy/AdvReac Type Severity Reaction Status Date / Time No Known Allergies Allergy Verified 01/29/20 07:39 Review of Systems All systems reviewed & are unremarkable except as noted in HPI and below Constitutional Constitutional: Reports as per HPI, Denies chills and Denies fever(s) Eyes Eyes: Denies blurry vision ENT Ears, Nose, Mouth, and Throat: Denies dizziness, Denies sore throat and Denies throat swelling Cardiovascular Cardiovascular: Denies chest pain and Denies dyspnea Respiratory Respiratory: Denies cough and Denies dyspnea Gastrointestinal Gastrointestinal: Denies abdominal pain, Denies diarrhea and Denies vomiting Genitourinary Genitourinary: Denies hematuria and Denies dysuria Musculoskeletal Musculoskeletal: Denies back pain, Denies numbness and Reports other (L knee pain) Integumentary/Breasts Skin/Breast: Denies lesions and Denies rash Neurologic Neurologic: Denies dizziness, Denies localized weakness and Denies numbness Allergic/Immunologic Allergic/Immunologic: Denies throat swelling [facility] Medical History (Updated 10/14/20 @ 12:55 by Lexus Longoria DO) History of retinal detachment (03/11/01) Hyperlipidemia (03/11/00) Mitral valve regurgitation per echo 1983 Multinodular goiter Pulmonary nodule, right Right hip pain pt. reports having an injection for it that helped Thoracic aortic aneurysm without rupture CT chest: 4.2cm 4cm on echocardiogram 2016 Surgical History Abdominal hysterectomy BSO/endometriosis with B/L oophorectomy Arthroplasty of knee (~2001) left; medial meniscus. no hardware (arthroscopy) Eye surgery 2001-repair of detached retina x 2;2002- lens implant History of colonoscopy History of tonsillectomy and adenoidectomy Family History Mother Personal history of malignant neoplasm KIDNEY Father TB (pulmonary tuberculosis) Alcohol abuse Emphysema lung Smoker Brother No problems noted. Grandfather No problems noted. Grandfather Stroke Grandmother No problems noted. Grandmother No problems noted. Social History Smoking/Tobacco Use Status: Never Smoking risk assessment performed?: Yes Alcohol Intake: current Alcohol Intake frequency: a few times a month Alcohol type: wine Drug use: Never Substance use type: does not use Details: alcohol: t-14 Adopted: No Caregiver/Support person: No Household members: spouse Do you need help understanding health information?: Rarely Pets and animals: Yes Pets and animals: cat(s) and dog(s) Sexually active: Yes Current gender identity: female What is your relationship status?: Panel score (0-1 are the most socially isolated patients): 1 What type of physical activity do you participate in: walking Duration: > 90 minutes/day Frequency: daily Seatbelt use: always Drive intox or ride w/intox locomotive driver: No Do you feel safe at home: Yes Do you feel safe in your relationship?: Yes Exam Const General: cooperative, healthy appearing and no acute distress HENMT Head: normal to inspection Mouth: oral mucosae normal Eyes General: appearance normal, both eyes and all related structures Neck Neck: normal visual inspection Resp Effort & Inspection: normal respiratory effort and able to speak in complete sentences Cardio Rate: regular rate Skin General skin exam: no rashes or lesions noted Neuro General: patient alert, patient awake and patient oriented x3 Motor: muscle tone normal throughout Extrem Other: Pain and clicking noted with Oscar's test on medial aspect. No significant pain with valgus or varus stress. Negative anterior posterior drawer test. No pain or abnormal sensation noted with Oscar's test on lateral aspect. Left knee is minimally edematous with moderate tenderness to palpation on the medial aspect but does not appear erythematous, hot to touch, or ecchymotic. There is no rash or lesions. Left DP/PT pulses intact. Psych Appearance: grossly normal Affect: normal affect
[2020-10-14 10:58] VITALS: BP 135/76; PULSE 86; RESP 16; TEMP 36.6; O2SAT 96
--- NOTE | 2020-10-14 11:15 | DI.RAD_ITS ---
Exam(s) XR KNEE LT 3V AP,LAT,MINDY EXAM: XR KNEE LT 3V AP,LAT,MINDY CLINICAL HISTORY: L knee pain, r/o arthritis vs fx. TECHNIQUE: 2D digital imaging was performed. COMPARISON: No exams were available for comparison FINDINGS: BONES: No acute fracture is present. No bony destructive lesion is seen. Chronic appearing bony de nsity projecting near the tibial spines. JOINTS: The knee is normally aligned. No joint effusion is seen. Degenerative changes greatest of th e medial femoral tibial joint. Patellofemoral joint space narrowing and spurring. SOFT TISSUE: Normal. IMPRESSION: Degenerative changes. No evidence of fracture DATA REPOSITORY: RADIATION DOSE DELIVERED:
[2020-10-14] MEDS: oxyCODONE 5 MG TAB PO (12:13)
--- NOTE | 2020-10-14 12:56 | DI.VRAD_ITS ---
PROCEDURE INFORMATION: Exam: XR Left Knee Exam date and time: 10/14/2020 11:20 AM Age: 74 years old Clinical indication: Pain; Knee; Left; Patient HX: Jack 16, no trauma TECHNIQUE: Imaging protocol: XR Left knee. Views: 3 views. COMPARISON: No relevant prior studies available. FINDINGS: Bones/joints: Moderate narrowing and spurring of the left medial joint compartment. Moderate narrowing of the left anterior joint compartment, with moderate patellar spurring. Small marginal osteophytes in the lateral joint compartment. No acute or suspicious osseous abnormalities. No joint effusion. Soft tissues: Normal. IMPRESSION: 1. 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 2. Moderate osteoarthritis of the left anterior joint compartment. Dictated and Authenticated by: Lorene Randle MD. Ordering:GWENDOLYN Alberts MD
[2020-10-14 13:26] VITALS: BP 129/77; PULSE 80; RESP 16; TEMP 36.6; O2SAT 98
== END 2020-10-14 13:13 | disposition home or self-care (01) ==
PROVIDERS: Emergency Provider Physician Assistant; PCP Family Medicine
DX: M17.12 Unilateral primary osteoarthritis, left knee (principal); M25.562 Pain in left knee; Y84.8 Other medical procedures as the cause of abnormal reaction of the patient, or of later complication, without mention of misadventure at the time of the procedure
CPT/HCPCS: 73562; 99283

== ENCOUNTER 2020-10-16 10:49 | Emergency (ER) | payer SELFPAY ==
--- NOTE | 2020-10-16 11:04 | NUR.NOTE ---
Addendum entered by Cheryl Pollard 10/16/20 12:11: ER director Lisa Garcia notified at this time Addendum entered by Cheryl Pollard 10/16/20 11:22: Vehicle Upholsterer Kim, also notified at this time. Original Note: Nursing Note: When approaching patient at registration desk patient asked this nurse if we could look up her friend's vaccination card because it's on record. This video game script writer asked registration if we were able to do that and was informed that we were not. Patient notified and it was informed that per our policy visitors needed to present vaccination card and that it was to keep everyone safe. This video game script writer asked patient if there was anyway for the visitor to get her vaccination card and she said that it was an hour away and she could not. Patient was brought into a room and stated she was here for left knee pain and she had recently had a steriod injection in that knee but it didn't help. Patient's phone then rang and patient hung up and said, wheel me out we are going somewhere else. This nurse asked patient if she was sure and patient was moving into wheelchair and stated she was leaving. MARBLE MECHANIC HELPER wheeled patient out, see note for detail. Sully Sarabia MD notified.
--- NOTE | 2020-10-16 11:09 | NUR.NOTE ---
Nursing Note: Patient's health advocate was waiting in [facility] when I brought patient to her in wheelchair. Advocate told me to push patient out to their harrell truck. Advocate was extremely angry, berated me entire way to vehicle, and told me we were a bunch of assholes. Informed me she used to be involved with the hospital and there was a good reason why she left. Insisted we open her chart and pull up her vaccination records. When I put the brakes on the wheelchair and attempted to assist patient getting into high vehicle, Advocate told me Oh, now you want to be nice.
--- NOTE | 2020-10-16 11:15 | W.ED.FU ---
Follow Up Plan: I was notified that patient walked out of the emergency department exam room without being seen. Per nursing, patient stated that she was going to another facility because her friend who had been with her was not allowed to accompany her into the emergency department because the friend did not have her vaccination card with her.
== END 2020-10-16 15:11 ==
LOC: ER 10:58
PROVIDERS: Emergency Provider Student in an Organized Health Care Education/Training Program; PCP Family Medicine
DX: Z53.21 Procedure and treatment not carried out due to patient leaving prior to being seen by health care provider (principal)

== ENCOUNTER → 2020-10-16 12:38 | Outpatient (BNVA) | payer MEDICARE, BC, SELFPAY | PROVIDERS: PCP Family Medicine; Referring Provider Family Medicine; Visit Provider Physician Assistant Surgical | DX: M25.562 Pain in left knee (principal); M17.12 Unilateral primary osteoarthritis, left knee; Z98.890 Other specified postprocedural states | CPT/HCPCS: 99214 ==

== ENCOUNTER 2020-10-18 03:21 | Outpatient (CLI) | payer MEDICARE, BC, SELFPAY ==
--- NOTE | 2020-10-18 10:35 | DI.MRI_ITS ---
Exam(s) MR LOWER JOINT LT WO EXAM: MR LOWER JOINT LT WO CLINICAL HISTORY: LT KNEE PAIN, M25.562. TECHNIQUE: Multiplanar multisequence MRI was performed. COMPARISON: CR,XR XR KNEE LT 3V AP,LAT,MINDY from 10/14/2020 CR,XR XR KNEE LT 3V AP,LAT,MINYD from 10/14/2020 FINDINGS: BONES: There is no fracture or contusion pattern. Periarticular spurring patellofemoral and and fem oral tibial joints. JOINTS: Severe cartilage thinning extending down to bone at the patellofemoral and medial femoral tib ial joints.. Small joint effusion. Anterior joint space loose body, anterior to the tibial attachme nt of the ACL. TENDONS: Extensor mechanism: Unremarkable. Medial retinaculum: Unremarkable. Lateral retinaculum: Unremarkable. Popliteus: Unremarkable. MUSCLES: Unremarkable. MENISCI: The medial meniscus shows severe degenerative change changes, greatest of the posterior horn .. The lateral meniscus is unremarkable. SOFT TISSUES: Small Corbin's cyst. LIGAMENTS: Anterior Cruciate: Mild edema near the tibial attachment. No focal tear.. Posterior Cruciate: Unremarkable. Medial Collateral:Edema around the medial collateral ligament but no visible tear. Lateral Collateral: Unremarkable. IMPRESSION: Degenerative changes with with chondromalacia extending down to bone involving the medial femoral tib ial joint and patellofemoral joint. There is joint space loose body. Degenerative changes of the me dial meniscus. Question of MCL and ACL sprains. DATA REPOSITORY:
== END 2020-10-18 03:41 ==
PROVIDERS: PCP Family Medicine; Visit Provider Student in an Organized Health Care Education/Training Program
DX: M17.12 Unilateral primary osteoarthritis, left knee (principal)
CPT/HCPCS: 73721

== ENCOUNTER → 2020-11-14 09:31 | Outpatient (BNVA) | payer MEDICARE, BC, SELFPAY | PROVIDERS: PCP Family Medicine; Referring Provider Family Medicine; Visit Provider Student in an Organized Health Care Education/Training Program | DX: M17.12 Unilateral primary osteoarthritis, left knee (principal); Z98.890 Other specified postprocedural states | CPT/HCPCS: 99213 ==

== ENCOUNTER 2020-12-17 09:22 | Outpatient (CLI) | payer MEDICARE, BC, SELFPAY ==
--- NOTE | 2020-12-17 08:00 | DI.RAD_ITS ---
Exam(s) XR KNEE LT 1V XR STANDING ALIGNMENT EXAM: XR STANDING ALIGNMENT CLINICAL HISTORY: preop. TECHNIQUE: 2D digital imaging was performed. Standing AP views were performed from the pelvis throu gh the ankles. A standing lateral view of the left knee was also performed. COMPARISON: CR XR KNEE LT 1V from 12/17/2020 CR XR KNEE LT 1V from 12/17/2020 FINDINGS: BONES: No acute fracture is present. No bony destructive lesion is seen. Mild overall leg length disc repancy at the level of the femoral heads with the the right femoral head projecting 5 millimeters jang perior to the right. JOINTS: Hips: Bilateral acetabular spurring. Knees: Moderate to severe narrowing of the medial femor al tibial joint of the left knee. [id number] narrowing of the medial femoral tibial joint spac e of the right knee. Ankles: Mild periarticular spurring. Joint space is well maintained. SOFT TISSUE: Normal. IMPRESSION: Degenerative changes greatest of the medial femoral tibial joint space of the left knee. Mild leg le ngth discrepancy. DATA REPOSITORY: RADIATION DOSE DELIVERED:
== END 2020-12-17 09:23 | disposition home or self-care (01) ==
LOC: DIORS 09:22
PROVIDERS: Visit Provider Physician Assistant Surgical
DX: M17.12 Unilateral primary osteoarthritis, left knee (principal); Z01.818 Encounter for other preprocedural examination
CPT/HCPCS: 73560; 77073

== ENCOUNTER 2020-12-23 03:37 | Outpatient (CLI) | payer MEDICARE, BC, SELFPAY ==
[2020-12-23 10:16] LABS: Source Nasal/Nares
[2020-12-23 12:50] LABS: COVID-19 PCR Negative (Negative)
== END 2020-12-23 03:38 | disposition home or self-care (01) ==
LOC: LBO 03:37
PROVIDERS: PCP Internal Medicine Hospice and Palliative Medicine; Visit Provider Student in an Organized Health Care Education/Training Program
DX: Z20.822 Contact with and (suspected) exposure to COVID-19 (principal); Z01.818 Encounter for other preprocedural examination
CPT/HCPCS: 36415; 80048; 85027; 87635

== ENCOUNTER 2020-12-23 04:08 | Outpatient (CLI) | payer MEDICARE, BC, SELFPAY ==
[2020-12-23 09:22] LABS: HCT 38.7 % (36.0-46.0); HGB 12.8 g/dL (11.2-15.7); MCH 30.8 pg (27.0-33.0); MCHC 33.1 % (32.0-36.0); MPV 9.8 fL (8.0-11.0); Platelet Count 204 10^3/uL (130-400); RBC 4.16 10^6/uL (3.93-5.22); RDW 12.2 % (11.7-14.6); RDW-SD 42.4 fL; WBC 5.41 10^3/uL (4.4-10.8)
[2020-12-23 10:41] LABS: BUN 20 mg/dL (7-18); CREATININE 0.9 mg/dL (0.55-1.02); Calcium 9.4 mg/dL (8.5-10.1); Chloride 102 mmol/L (98-107); Glucose 90 mg/dL (74-106); Potassium 4.5 mmol/L (3.5-5.1); Sodium 140 mmol/L (136-145)
== END 2020-12-23 04:09 | disposition home or self-care (01) ==
LOC: LBO 04:08
PROVIDERS: PCP Internal Medicine Hospice and Palliative Medicine; Visit Provider Student in an Organized Health Care Education/Training Program
DX: M25.562 Pain in left knee (principal); M17.12 Unilateral primary osteoarthritis, left knee; Z01.818 Encounter for other preprocedural examination; Z01.812 Encounter for preprocedural laboratory examination
CPT/HCPCS: 36415; 80048; 85027

== ENCOUNTER 2020-12-24 07:17 | Day surgery (SDC) | payer MEDICARE, BC, SELFPAY ==
[2020-12-24] VITALS (8 sets, daily range): BP systolic 88–152; BP diastolic 47–92; PULSE 61–67; RESP 14–16; TEMP 36.1–36.6; O2SAT 95–99; BMI 27.2
--- NOTE | 2020-12-24 06:29 | W.ANESPRE ---
General Info Date of Service Date Performed: 12/24/20 Height: 5 ft 6 in Weight: 76.657 kg Body Mass Index (BMI): 27.2 Surgical Procedure: Operation Date: 12/24/20 10:25 Proposed Procedures Side Surgeon p Knee Total Arthroplasty Left Xavier Vallecillo MD Meds Allergies and Home Medications Allergies Allergy/AdvReac Type Severity Reaction Status Date / Time No Known Allergies Allergy Verified 12/24/20 07:40 Home Medication Medication Instructions Recorded albuterol sulfate [ProAir HFA] 1 - 2 puff INHALATION QID PRN #1 10/18/17 inhaler ferrous sulfate 325 mg (65 mg 325 mg PO DAILY #90 tab 11/01/19 iron) tablet flaxseed oil 1,000 mg capsule 1,000 mg PO DAILY 01/11/20 multivitamin 1 cap PO DAILY 01/11/20 celecoxib 200 mg capsule 200 mg PO BID #60 cap 11/12/20 gabapentin 100 mg capsule 100 mg PO TID #90 cap 12/06/20 acetaminophen [Tylenol Extra 500 mg PO Q6H PRN #90 tab 12/24/20 Strength] aspirin 81 mg PO BID #60 tab 12/24/20 celecoxib [Celebrex] 200 mg PO BID #60 cap 12/24/20 oxycodone 5 mg PO Q4H PRN #18 tab 12/24/20 pantoprazole [Protonix] 40 mg PO DAILY #30 tab 12/24/20 Current Visit Medications: Current Medications Generic Name Dose Route Start Last Admin Trade Name Freq PRN Reason Stop Dose Admin Acetaminophen 1,000 mg 12/24/20 06:00 Acetaminophen 500 Mg Tab PO 12/24/20 16:00 PREOP LORENZA Celecoxib 400 mg 12/24/20 06:00 Celecoxib 200 Mg Cap PO 12/24/20 16:00 PREOP LORENZA Gabapentin 300 mg 12/24/20 06:00 Gabapentin 300 Mg Cap PO 12/24/20 16:00 PREOP LORENZA Tranexamic Acid 1,000 mg/ 60 mls @ 360 mls/hr 12/24/20 06:00 Sodium Chloride IVPB 12/24/20 16:00 PREOP LORENZA Tranexamic Acid 1,000 mg/ 60 mls @ 360 mls/hr 12/24/20 06:00 Sodium Chloride IVPB 12/24/20 16:00 DIRECTED LORENZA Ringer's Solution 1,000 mls @ 80 mls/hr 12/24/20 06:00 IV 01/22/21 23:59 INFUSION LORENZA Cefazolin Sodium 2,000 mg/ 100 mls @ 200 mls/hr 12/24/20 06:00 Sodium Chloride IVPB 12/24/20 16:00 PREOP LORENZA IV Miscellaneous Supplies 1 each 12/24/20 06:00 Iv Access IV 01/22/21 23:59 DIRECTED LORENZA Sodium Chloride 0 ml 12/24/20 06:00 Normal Saline Flush 10 Ml Syr IV 01/22/21 23:59 PRN PRN Sodium Chloride 0 ml 12/24/20 06:00 Normal Saline 10 Ml Vial IJ 01/22/21 23:59 DIRECTED PRN Sterile Water 0 ml 12/24/20 06:00 Water,Injection,Sterile 10 Ml Vial IJ 01/22/21 23:59 DIRECTED PRN PFSH Active Problems Active Problems: Problem Status Onset Code Osteoarthritis of left knee M17.12 Left knee pain M25.562 Arthritis M19.90 Sessile colonic polyp K63.5 Tubulovillous adenoma of colon D12.6 Tubular adenoma of colon D12.6 Sensorineural hearing loss of both ears H90.3 Dysfunction of both eustachian tubes H69.83 Sensorineural hearing loss, asymmetrical 09/11/13 H90.5 Recurrent UTI (urinary tract infection) 07/06/17 N39.0 Post-nasal drip 04/19/15 R09.82 Right rotator cuff tendonitis M75.81 Chronic rhinitis J31.0 Sneezing R06.7 Itchy, watery, and red eye H57.89 History of bursectomy Z98.890 Allergic rhinitis due to allergen J30.9 Pulmonary nodule, right R91.1 Multinodular goiter E04.2 Hyperlipidemia 03/11/00 E78.5 Thoracic aortic aneurysm without rupture I71.2 Mitral valve regurgitation I34.0 Medical History Medical History History of retinal detachment (03/11/01) Hyperlipidemia (03/11/00) Mitral valve regurgitation per echo 1984 Multinodular goiter Pulmonary nodule, right Right hip pain pt. reports having an injection for it that helped Thoracic aortic aneurysm without rupture CT chest: 4.2cm 4cm on echocardiogram 2017 Surgical History Surgical History Abdominal hysterectomy BSO/endometriosis with B/L oophorectomy Arthroplasty of knee (~2001) left; medial meniscus. no hardware (arthroscopy) Eye surgery 2001-repair of detached retina x 2;2002- lens implant History of colonoscopy History of tonsillectomy and adenoidectomy Tobacco Smoking/Tobacco Use Status: Never Alcohol Alcohol Intake: current Alcohol intake frequency: a few times a month Alcohol type: wine Substance Use Substance use: Never Substance use type: does not use Details: alcohol: t-14 Vital Signs and Lab Results Vital Signs Most Recent Vital Signs in EMR: Temp Pulse Resp BP Pulse Ox 36.6 C 63 16 112/67 98 12/24/20 07:27 12/24/20 07:27 12/24/20 07:27 12/24/20 07:27 12/24/20 07:27 Lab Results Blood Type / Crossmatch: No Data to Display Complete Blood Count: White Blood Count 5.41 10^3/uL (4.4-10.8) 12/23/20 09:19 12/23/20 Red Blood Count 4.16 10^6/uL (3.93-5.22) 12/23/20 09:19 12/23/20 Hemoglobin 12.8 g/dL (11.2-15.7) 12/23/20 09:12/23/20 Hematocrit 38.7 % (36.0-46.0) 12/23/20 09:12/23/20 Platelet Count 204 10^3/uL (130-400) 12/23/20 09:19 12/23/20 Complete Metabolic Panel: Sodium Level 140 mmol/L (136-145) 12/23/20 09:12/23/20 Potassium Level 4.5 mmol/L (3.5-5.1) 12/23/20 09:19 12/23/20 Chloride Level 102 mmol/L (98-107) 12/23/20 09:19 12/23/20 Carbon Dioxide Level 29.0 mmol/L (21.0-32.0) 12/23/20 09:19 12/23/20 Blood Urea Nitrogen 20 mg/dL (7-18) H 12/23/20 09:19 12/23/20 Creatinine 0.9 mg/dL (0.55-1.02) 12/23/20 09:12/23/20 Estimated GFR/1.73 m2 >= 60.00 (mL/min/1.73m2) 12/23/20 09:19 12/23/20 Calcium Level 9.4 mg/dL (8.5-10.1) 12/23/20 09:19 12/23/20 Glucose Level 90 mg/dL (74-106) 12/23/20 09:19 12/23/20 Liver Function Panel: No Data to Display Coagulation Panel: No Data to Display Cardiac Panel: No Data to Display Arterial Blood Gas: No Data to Display Venous Blood Gas: No Data to Display Pancreas Panel: No Data to Display Thyroid Panel: No Data to Display Infectious Disease: Coronavirus (COVID-19)(PCR) Negative (Negative) 12/23/20 10:15 12/23/20 Coronavirus 2019 Source Nasal/Nares 12/23/20 10:15 12/23/20 Blood Cultures: No Data to Display Toxicology Panel: No Data to Display Imaging and Studies Imaging and Studies Echocardiogram Summary: 2017: LVEF 65-70%, mild AR, Mild MR. small aneurysm in the ascending aorta - 4 cm. Anesthesia Assessment and Plan Anesthesia History Personal History: No History of Anesthesia Complications Family History: No Family History of Anesthesia Complications Exercise Tolerance Exercise Tolerance: Metabolic Equivalents>4 Cardiac & Pulmonary Exam Cardiac Exam: Normal S1/S2 Heart Sounds Pulmonary Exam: Clear Bilateral Breath Sounds Airway Exam Known Difficult Airway: No Mallampati Class: 2 Mouth Opening: Normal (> 3cm) Thyromental Distance: Less than 3 cm Neck Range of Motion: Full ROM Neck Circumference: Normal Teeth Condition: Normal Dentition ASA Classification ASA Score: ASA 2 Emergency Case?: No NPO Status NPO Status: NPO Clears >2 hours, Solids >8 hours Anesthesia Plan Resuscitation Status: Full Code Anesthesia Technique: Spinal Anesthesia Airway Planned: Natural Airway Pain Management: Surgeon and patient request nerve block Monitors Used: Standard Monitors Preoperative Comments:: 75 yo female for TKA. Sig PMHx: MR, thoracic Ao aneursym stable at ~ 4cm. Previous anes: Mac 3 grade 2b, easy mask .
--- NOTE | 2020-12-24 07:43 | PDOC.DSDIS_ITS ---
Documented by User: ANDRE Ramirez 12/24/20 07:47 Discharge Plan Disposition Patient Disposition: HOME Condition: Stable Discharge Details Reason For Visit: Left TKA Attending Provider: Xavier Vallecillo Primary Care Provider: RICHARD BOYKIN Home Meds and New Rx's Prescriptions: New aspirin 81 mg tablet,delayed release (DR/EC) 81 mg PO BID Qty: 60 RF: 0 celecoxib [Celebrex] 200 mg capsule 200 mg PO BID Qty: 60 RF: 0 acetaminophen [Tylenol Extra Strength] 500 mg tablet 500 mg PO Q6H PRNQty: 90 RF: 0 pantoprazole [Protonix] 40 mg tablet,delayed release (DR/EC) 40 mg PO DAILY Qty: 30 RF: 0 oxycodone 5 mg tablet 5 mg PO Q4H PRNQty: 18 RF: 0 Continued multivitamin Capsule 1 cap PO DAILY RF: 0 flaxseed oil [Brimhall-3 Flaxseed Oil] 1,000 mg capsule 1,000 mg PO DAILY RF: 0 ferrous sulfate 325 mg (65 mg iron) tablet 325 mg PO DAILY Qty: 90 RF: 4 albuterol sulfate [ProAir HFA] 8.5 GM HFA aerosol inhaler 1 - 2 puff Inhalation QID PRNQty: 1 RF: 4 celecoxib [Celebrex] 200 mg capsule 200 mg PO BID Qty: 60 RF: 3 gabapentin 100 mg capsule 100 mg PO TID Qty: 90 RF: 3 Discharge Instructions Additional Instructions: Total Knee Discharge Instructions Activity: The most important activity is to walk. You should try to take short walks a few times a day. It is important that when resting you work on keeping the knee straight. Avoid putting a pillow behind the knee as this will encourage flexion. Work on range of motion exercises as provided by Physical Therapy. If you have the [employer] bike coming, this will be your primary tool for exercise after the knee replacement. You should use it and follow the directions for the knee. Utilize the other exercises sparingly based on your symptoms. - Start outpatient physical therapy within 2 weeks. - You should wear the PANCHITO hose on both legs for 2 weeks. You may remove these at night. You may also use any compression sock in place of the PANCHITO hose. - Utilize [employer] to review exercises, see videos on exercises and obtain basic information pertaining to your surgery and your recovery. Dressing: Remove the Jann wrap by 2 days after your surgery and put on the PANCHITO stocking given to you from the hospital. Keep the surgical dressing (underneath the JANN wrap) in place for at least one week. After the first week it may be removed and replaced with light gauze and tape or nothing. The wound and dressing may get wet after 3 days but avoid soaking the dressing or otherwise it will need to be changed. Many people prefer covering the dressing with cling wrap (saran wrap) to minimize it from getting soaked. If it gets wet, just pat dry. If it starts to peel off then it will need to be changed. Medications: - You should take Tylenol and anti-inflammatory Celebrex as your primary pain control medications. If the Celebrex is too expensive or not covered, please call the office for another alternative (Advil/Ibuprofen or Naproxen/Aleve) - You have been prescribed a stronger pain medication Oxycodone for breakthrough pain, take as needed as prescribed. - You have also been prescribed a stomach acid reduction agent Pantoprozole to help reduce stomach acid and reflux. - Continue with your previously prescribed Gabapentin, take at night for restlessness and nerve pain. - You will be taking Aspirin 81mg twice a day for DVT prevention unless instructed otherwise. - If you have constipation you should take Colace or Miralax (both [id number]). It takes most people 3-4 days to have a bowel movement. Follow-up: 2 weeks If you have any acute concerns or questions, please do not hesitate to contact the office at [phone]. You may contact Dr. Vallecillo with any questions after hours through the hospital at [phone] or on his cell phone at [phone]. Referrals: Xavier Vallecillo MD [ [facility] STAFF PHYSICIAN] - Equipment/Supplies: Walker Activity:: Activity as Tolerated Remove Dressings/Wound Care:: Do Not Remove Shower/Bathe:: 72 hours Diet:: As Tolerated Discharge Orders Discharge Orders: Discharge Order (Routine); Ordered 12/24/20 Ordered By: Naomi Jang DS: Diagnosis Discharge Diagnosis (1) Osteoarthritis of left knee: Status: Acute Documented by User: Xavier Vallecillo MD 12/24/20 14:51 Discharge Plan Disposition Patient Disposition: HOME Condition: Stable Discharge Details Reason For Visit: Left TKA Attending Provider: Xavier Vallecillo Primary Care Provider: RICHARD BOYKIN Home Meds and New Rx's Prescriptions: New aspirin 81 mg tablet,delayed release (DR/EC) 81 mg PO BID Qty: 60 RF: 0 celecoxib [Celebrex] 200 mg capsule 200 mg PO BID Qty: 60 RF: 0 acetaminophen [Tylenol Extra Strength] 500 mg tablet 500 mg PO Q6H PRNQty: 90 RF: 0 pantoprazole [Protonix] 40 mg tablet,delayed release (DR/EC) 40 mg PO DAILY Qty: 30 RF: 0 oxycodone 5 mg tablet 5 mg PO Q4H PRNQty: 18 RF: 0 Continued multivitamin Capsule 1 cap PO DAILY RF: 0 flaxseed oil [Brimhall-3 Flaxseed Oil] 1,000 mg capsule 1,000 mg PO DAILY RF: 0 ferrous sulfate 325 mg (65 mg iron) tablet 325 mg PO DAILY Qty: 90 RF: 4 albuterol sulfate [ProAir HFA] 8.5 GM HFA aerosol inhaler 1 - 2 puff Inhalation QID PRNQty: 1 RF: 4 celecoxib [Celebrex] 200 mg capsule 200 mg PO BID Qty: 60 RF: 3 gabapentin 100 mg capsule 100 mg PO TID Qty: 90 RF: 3 Discharge Instructions Additional Instructions: Total Knee Discharge Instructions Activity: The most important activity is to walk. You should try to take short walks a few times a day. It is important that when resting you work on keeping the knee straight. Avoid putting a pillow behind the knee as this will encourage flexion. Work on range of motion exercises as provided by Physical Therapy. If you have the [employer] bike coming, this will be your primary tool for exercise after the knee replacement. You should use it and follow the directions for the knee. Utilize the other exercises sparingly based on your symptoms. - Start outpatient physical therapy within 2 weeks. - You should wear the PANCHITO hose on both legs for 2 weeks. You may remove these at night. You may also use any compression sock in place of the PANCHITO hose. - Utilize [employer] to review exercises, see videos on exercises and obtain basic information pertaining to your surgery and your recovery. Dressing: Remove the Jann wrap by 2 days after your surgery and put on the PANCHITO stocking given to you from the hospital. Keep the surgical dressing (underneath the JANN wrap) in place for at least one week. After the first week it may be removed and replaced with light gauze and tape or nothing. The wound and dressing may get wet after 3 days but avoid soaking the dressing or otherwise it will need to be changed. Many people prefer covering the dressing with cling wrap (saran wrap) to minimize it from getting soaked. If it gets wet, just pat dry. If it starts to peel off then it will need to be changed. Medications: - You should take Tylenol and anti-inflammatory Celebrex as your primary pain control medications. If the Celebrex is too expensive or not covered, please call the office for another alternative (Advil/Ibuprofen or Naproxen/Aleve) - You have been prescribed a stronger pain medication Oxycodone for breakthrough pain, take as needed as prescribed. - You have also been prescribed a stomach acid reduction agent Pantoprozole to help reduce stomach acid and reflux. - Continue with your previously prescribed Gabapentin, take at night for restlessness and nerve pain. - You will be taking Aspirin 81mg twice a day for DVT prevention unless instructed otherwise. - If you have constipation you should take Colace or Miralax (both [id number]). It takes most people 3-4 days to have a bowel movement. Follow-up: 2 weeks If you have any acute concerns or questions, please do not hesitate to contact the office at [phone]. You may contact Dr. Vallecillo with any questions after hours through the hospital at [phone] or on his cell phone at [phone]. Referrals: Xavier Vallecillo MD [ [facility] STAFF PHYSICIAN] - Equipment/Supplies: Walker Activity:: Activity as Tolerated Remove Dressings/Wound Care:: Do Not Remove Shower/Bathe:: 72 hours Diet:: As Tolerated Discharge Orders Discharge Orders: Discharge Order (Routine); Ordered 12/24/20 Ordered By: Naomi Jang
[2020-12-24] MEDS: Acetaminophen 500 MG TAB 1000 MG PO (07:51)
[2020-12-24] MEDS: Celecoxib 200 MG CAP 400 MG PO (07:51)
[2020-12-24] MEDS: Gabapentin 300 MG CAP PO (07:52)
[2020-12-24] MEDS: Lactated Ringers 1,000 ML 80 ML IV (08:03)
--- NOTE | 2020-12-24 08:57 | W.ANESNERVE ---
Nerve Block Single Injection Procedure Date and Time Date Performed: 12/24/20 Procedure Start: 08:48 Location Where Procedure Performed Procedure Location: PACU Reason Performed: Postoperative Analgesia Requesting Provider: Xavier Vallecillo Timeout Performed Timeout Performed: Yes Monitoring Used ECG, Blood Pressure, SpO2 and ETCO2 Sterility Sterility: Hand Hygiene, Surgical Cap, Surgical Mask and Sterile Gloves Sedation Given During Procedure Sedation Given (Indicate Dose Given): No Sedation given Patient Mental Status Patient Mental Status: Awake Nerve Block 1st Nerve Block: Laterality: Left Block Type: Adductor Canal Needle / Catheter Used: 100mm SonoPlex II Local Anesthetic Bolus (Indicate Dose Given): Bupivacaine 0.375% Dose:: 10 mL Additives (Indicate Dose Given): None Ultrasound: Sterile probe cover and gel used Ultrasound Image Saved?: Yes Nerve Stimulator: Not Used Paresthesia: None Procedure Tolerated: No Complications Procedure Outcome: Successful Performed By: Elijah Rodas
[2020-12-24] MEDS: ceFAZolin 2,000 MG in Normal Saline 100 ML 200 MG IVPB (09:15)
[2020-12-24] MEDS: Normal Saline 20 ML VIAL (10:12)
[2020-12-24] MEDS: Bupivacaine 0.25% Pres-Free 30 ML VIAL (10:12)
[2020-12-24] MEDS: Ketorolac 30 MG/ML VIAL (10:12)
--- NOTE | 2020-12-24 11:54 | W.ANESPOSTOP ---
Postoperative Evaluation Date, Time and Location Date Performed: 12/24/20 Time Performed: 11:54 Patient Location: Day Surgery Unit Vital Signs Most Recent Imported Vital Signs: Most Recent Vital Signs Temp Pulse Resp BP Pulse Ox 36.1 C L 65 14 115/55 L 95 12/24/20 11:22 12/24/20 11:22 12/24/20 11:22 12/24/20 11:22 12/24/20 11:22 Pain Score Most Recent Pain Score: Most Recent Pain Score Pain Level 0 12/24/20 11:22 Assessment Mental Status: Awake (Alert & Oriented to Patient Baseline) Airway and Respiratory Function: Patent airway with normal (patient baseline) respiratory exam Cardiovascular Function: Hemodynamically Stable Hydration Status: Adequately Hydrated Nausea & Vomiting: No Nausea or Vomiting Pain: Pain is tolerable per patient Peripheral Nerve Block: Regional nerve block not resolved at time of post operative discharge
[2020-12-24] MEDS: oxyCODONE 5 MG TAB PO (11:55)
--- NOTE | 2020-12-24 14:03 | IN_ITS ---
Date of service: 12/24/20 Time of Service: 14:03 PT Notes Visit Reasons: Left TKA Physical Therapy Day Surgery Initial Evaluation Date: 12/24/2020 Referring Doctor: ANDRE Ramirez PT Orders: PT CONSULT: Status post Ortho surgery. Precautions: WBAT on the left LE. Patient Profile/Admitting Diagnosis: Suzanna is a 75-year-old female with primary unilateral osteoarthritis of the left knee and is status post left total knee arthroplasty on postoperative day 0. PMHX: Medical History History of retinal detachment (03/11/01) Hyperlipidemia (03/11/00) Mitral valve regurgitation per echo 1983 Multinodular goiter Pulmonary nodule, right Right hip pain pt. reports having an injection for it that helped Thoracic aortic aneurysm without rupture CT chest: 4.2cm 4cm on echocardiogram 2016 Surgical History Abdominal hysterectomy BSO/endometriosis with B/L oophorectomy Arthroplasty of knee (~2001) l eft; medial meniscus. no hardware (arthroscopy) Eye surgery 2001-repair of detached retina x 2;2002- lens implant History of colonoscopy History of tonsillectomy and adenoidectomy Social History/Home Situation: Lives with significant other in a private home with 2 steps to enter with one rail. Independent with all aspects of ADLs prior to onset of symptoms. States that for the last 3 months she has been needing help with stairs and with securing things in the house which require longer distance of walking. 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 Equipment Owned/DME: Single-point cane, 4WW Subjective: Denies pain in the left knee. Denies headache and chest pain. Did indicate mild lightheadedness upon sitting up that subsided shortly right after. Objective: General Observation: In NAD. KELLY wraps to left LE. Cryocuff on left knee. Mental Status: Alert and oriented x4 Pain: Denies ROM: Right Lower Extremity: Hip flexion WFL. Hip abduction WFL. Knee flexion WFL. Ankle dorsiflexion WFL. Ankle plantarflexion WFL. Left Lower Extremity: Hip flexion WFL. Hip abduction WFL. Knee flexion 10 degrees to 90 degrees. Knee extension -10 degrees ankle dorsiflexion WFL. Ankle plantarflexion WFL. Strength: Right Lower Extremity: Hip flexors 5/5. Hip abductors 5/5. Knee flexors 5/5. Knee extensors 5/5. Ankle dorsiflexors 5/5. Ankle plantarflexors 5/5. Left Lower Extremity: Hip flexors 4/5. Hip abductors 4/5. Knee flexors 3-/5. Knee extensors 3-/5. Ankle dorsiflexors 4/5. Ankle plantarflexors 5/5. Sensation: Intact as to light touch and pain on bilateral lower extremities Bed Mobility/Transfers: Supine to sit supervision Sit to stand contact-guard assist Stand to sit standby assist Bed to chair standby assist Gait: Patient was instructed with level surface ambulation for up to about 75 feet using front-wheeled walker with step through gait pattern with at most 4/10 pain in the left knee with weight bearing requiring only standby assist. Stairs: Using SPC with one hand and while holding onto a rail with the other hand patient was able to negotiate up and down 6 x 4 inch steps and 4 x 6 inch steps requiring contact-guard assist with no increase in pain reported. Balance: Static Sitting: Normal Dynamic Sitting: Normal Static Standing: Fair Dynamic Standing: Fair Special Tests: Mobility Limitations Standardized Measure [facility] AM-PAC 6 clicks Basic Mobility Inpatient Short Form: Raw Score: 23 CMS Score: 11% deficit Informed Consent/Education: Patient instructed in purpose of PT consult. Packet containing TKA exercise protocol has been given to patient. Education and training on initial set of exercises that can be done at home have been completed with patient. Assessment: Suzanna is a 75-year-old female with primary unilateral osteoarthritis of the left knee and is status post left total knee arthroplasty on postoperative day 0. Suzanna requires the use of a front wheeled walker to maximize independence and reduce fall risk at home. Patient presents with clinical signs and symptoms consistent with current/admitting diagnoses that have resulted to mobility limitations, gait instability, generalized weakness, and impairment of motor control as demonstrated by the following impairment level findings: 1. Decreased strength to left knee major muscle groups 2. Impaired standing balance 3. Limitation of joint range of motion in left knee Impairments are contributing to the following functional limitations: 1. Inability to safely ambulate without assistive device 2. Increase completion time for mobility ADL performance 3. Increased fall risk Patient is assessed as a 72490 moderate complexity based on the following: History: 75-year-old female with impairment level findings, functional limitations, and past medical history as indicated above Examination: Demonstrable impairment in strength, balance, and mobility level with underlying impairments and functional limitations as documented above Presentation: Evolving Decision Makin moderate complexity Goals: N/A. PT evaluation and 1-2 treatment sessions only for functional mobility training using recommended AD and for HEP instruction. Plan of Care/Treatment Plan: N/A. PT evaluation and 1-2 treatment session only for functional mobility training using recommended AD and for HEP instruction. DISCHARGE RECOMMENDATIONS: Home when medically cleared by orthopedic surgeon. Will benefit from the use of a front wheeled walker to maximize independence and reduce fall risk at home. Outpatient PT services may be helpful in facilitating return to unrestricted community ambulation without an assistive device. TREATMENT CODE/TIME: 58070 x 20 minutes, 9753 0 x 22 minutes beginning at 14:03 PM. Thank you for the opportunity to participate in the care of this patient. Ivana Prabhakar PT, DPT, CLT [facility] [place], [place]
--- NOTE | 2020-12-24 21:52 | ROE_ITS ---
Date of service: 12/24/20 Time of Service: 10:32 Operative Note Operative Note DATE OF PROCEDURE: 12/24/20 PRE-OP DIAGNOSIS: Left Knee Osteoarthritis POST-OP DIAGNOSIS: same PROCEDURE: Left Total Knee Replacement SURGEON: Xavier Vallecillo PATIENT INFORMATION COORDINATOR: Naomi Jang ANESTHESIA TYPE: Spinal Refer to Anesthesia Record ESTIMATED BLOOD LOSS: 100 PATHOLOGY: none sent TOURNIQUET TIME: 24 COMPLICATIONS: None Patient was transported to: PACU Patient's condition: stable Implants: 1. Depuy Attune Cruciate Retaining Femoral Component, Size 5 2. Depuy Attune Rotating Platform Tibial Component, Size 4 3. Depuy Attune 5x7 CR,RP Poly 4. Depuy Attune Patellar Component, Size 35 Indications: I have seen Suzanna in clinic for symptoms of knee arthritis, confirmed with radiographic findings. She has exhausted nonoperative methods and was having significant limitations in daily function and desired better function and less pain. I discussed the technical details of a knee replacement. I explained the risks of the procedure to include, but not limited to, bleeding, infection, pain, stiffness, fracture, damage to nerves and vessels, damage to muscles and tendons, loosening, need for repeat procedure, blood clot and cardiopulmonary demise. Despite these risks, Suzanna elected to proceed. Findings: There was notable cartilage wear within the knee, mostly medial but also throughout the patellofemoral joint. Procedure Description: Suzanna was greeted in the preoperative holding area where the correct side was identified and marked. The consent was reviewed with the patient and signed. The history and physical was updated. All questions were answered. Preoperative mediacations were administered: Acetaminophen 1000mg, Celebrex 400mg, and Gabapentin 300mg. An adductor canal block was then administered by the anesthesia team in the PACU. She was taken back to the operating room. A spinal anesthestic was then administered. The patient was placed into the supine position on the operating room table. A nonsterile tourniquet was placed high onto the leg but only used for cementing. Posts were placed for positioning during the procedure. All bony prominences were well padded. Prophylactic antibiotics in the form of Cefazolin were administered. 1g of Tranxemic Acid was given intravenously within 30 minutes of incision. The left leg was then prepped with Chloraprep and draped in a standard fashion with impervious stockinette and extremity drape. A second prep with Chloraprep was performed prior to placing Ioband. A timeout to confirm correct identity, side and site, procedure, allergies, anesthesia, and medical concerns was performed. With the knee in some flexion, a midline incision was made overlying the knee. Full thickness skin flaps were raised once the extensor mechanism was encountered. These were raised medially and laterally. Any bleeding was controlled with electrocautery. Once the extensor mechanism was fully exposed, a medial parapatellar arthrotomy was performed in a flexed position. All bleeding from the arthrotomy and the geniculate arteries was coagulated. A medial subperiosteal peel was performed with electrocautery to the midcoronal plane. The fat pad was removed while keeping the patellar tendon protected. The anterior distal femur synovium was removed for later visualization. The ACL and PCL were resected and the anterior horn of the lateral meniscus was transected. The knee was then flexed with the patella everted. Using a step drill, and based on preoperative templating, the femoral canal was entered. This was done with a step drill without any difficulty. The intramedullary distal femoral cut guide was inserted, set to a 5 degree valgus cut and 9mm cut thickness. The distal femoral cut guide was then held in position and pinned. With the soft tissues protected, the distal cut was performed. This was passed over a few times to ensure a planar cut. I then tu rned attention to the tibia. The extramedullary guide was placed onto the leg. The distal aspect was slid medial to adjust for position of center of ankle and stay in line with shaft of the tibia. Approximately 3-5 degrees of posterior slope was kept in the proximal cutting guide. The center of the guide was aligned with the PCL. The stylus was used to assess cut thickness. The medial side, most involved side, was set for a 4mm cut, corresponding to 8mm laterally. This was then held in position and pinned into place with 2 additional pins and a cross pin for stability. The medial and lateral collateral ligaments were protected and the cut was performed. With this completed, it was assessed and noted to be of appropriate dimensions. The guide was removed. A spacer block was inserted and the knee was brought into extension. The 7mm spacer block provided full extension, without hyperextension and with stability of both the medial and lateral collateral ligaments was assessed. The pins from the femur and the tibia were then removed. The distal femur was then sized. The anterior stylus was placed onto the lateral ridge of the anterior femur. This indicated a size 5 femur. The external rotation of the guide was adjusted to 3 degrees to match the epicondylar axis, perpendicular to Jennifer?s line. The 4-in-1 cutting guide was the placed. The posterior medial femur cut was evaluated and appeared of good thickness. The spacer block was inserted underneath the cutting guide and stability was confirmed in 90 degrees of flexion. An delia wing was used to confirm appropriate position of the anterior cut to avoid notching. This cutting guide was ensured to be flush on the cut surface and then pinned into place with headed pins. While protecting the soft tissues, quad tendon, and collateral ligaments, the anterior and posterior cuts were performed with a saw. The central two pins were removed and the posterior and anterior chamfers were cut next. The notch-cutting guide was placed. This was pinned to lateralize the femoral component as much as possible while keeping it flush on the cut surface. This was then pinned into position. A reciprocating saw was used to make the small notch cut. A trial CR femoral component was then inserted, impacted down to the cut surfaces, and the lug holes were drilled. A provisional trial tibial component was placed and the knee was brought through range of motion. There was noted to be excellent extension and flexion. There was no significant instability. The patella was tracking without thumbs. The tibial cut surface was fully exposed. The medial and lateral menisci were removed. The tibia was then sized as a 4. The tibia had been previously marked during trialing to correspond to the center of the tibial component to help with rotation. The trial was aligned to this xochilt, approximately rotated to the medial 1/3rd of the tibial tubercle. The trial was pinned into place. The tibia was prepared with a reamer and a keel punch. The knee was then brought into extension and the patella was measured as 21mm. Using the patellar clamp and cut guide, this was resected to a flat surface with at least 13mm of thickness remaining. The size 35 patella fit the best. This was oriented and then clamped into position. The lugs were drilled. The trial components were removed. The final components, except for the polyethylene were opened on the back table. The periosteal and capsular tissues, especially posteriorly, around the knee were then systematically injected with a periarticular cocktail consisting of 50cc 0.25% Marcaine, 30mg Ketorolac, 20cc of Exparal and 50cc of injectable saline. The tourniquet was then inflated to 275mmHg. The knee was thoroughly irrigated with a pulse lavage and dried. On the back table, with the implants opened, the cement was mixed. 2 batches of medium viscosity cement were prepared with vacuum assistance. After the cement was ready it was placed on to the back side of the tibial component. A small amount was placed onto the posterior flange of the femur. Cement was manual pressurized and impregnated into the cut surface of the tibia. The tibial component was then inserted into the cut surface and impacted into position. Excess cement was removed and the component was reimpacted. Again, excess cement was removed and our attention was then turned to the femur. The femoral cut surface was once again dried and cement was manually impacted into the cut surface. The femoral component was lined with the lug holes and impacted. Excess cement was removed. It was ensured to be down against the cut surface. The trial polyethylene was then inserted and the leg was brought out into full extension for the duration of the cement curing process, approximately 18min. Cement was lastly manually impacted into the cut surface of the patella and the patellar button was clamped into position and held. During this process atten tion was turned to the gutters of the knee and for all interfaces for any excess cement. While the cement was hardening, the knee was irrigated with Irrisept chlorhexadine solution. It was allowed to sit in the knee for 3 minutes. After the cement had finally cured, approximately 18min, the clamp was removed from the patella and the knee was taken through range of motion. A size 6mm polyethylene component provided the best range of motion and stability with less than 2mm gapping with medial and lateral stress and full extension without significant hyperextension. The patella was tracking with a no-thumbs technique. The trial poly was removed and once again the knee was checked for any loose, excess, or errant cement. The poly component was then inserted into position after cleaning and drying the tibial tray. The capsule was then reapproximated with a No. 1 Vicryl at multiple locations. The capsule was finally closed with a No. 2 Stratafix, barbed suture. The tourniquet was then released and the arthrotomy appeared watertight without significant bleeding. The second dosing of 1g TXA was started. Deep tissues were then reapproximated with 0 Vicryl and 2-0 Vicryl. The skin was closed with a running 3-0 Monocryl in a subcuticular fashion. This was reinforced with skin glue. A Mepilex silver dressing was applied along with a ntaa-qu-ssaki KELLY wrap. A CryoCuff was applied. Suzanna was transferred to the hospital bed without difficulty an suffering no apparent complication. She has a good prognosis. Physical therapy will start today and without restrictions, weight-bearing as tolerated. Aspirin 81mg BID will be used for DVT prophylaxis.
== END 2020-12-24 15:30 | disposition home or self-care (01) ==
PROVIDERS: PCP Internal Medicine Hospice and Palliative Medicine; Visit Provider Student in an Organized Health Care Education/Training Program
PROC: (CPT 27447; principal; 2020-12-24 10:15)
DX: M17.12 Unilateral primary osteoarthritis, left knee (principal)
CPT/HCPCS: 27447; C1776; 97162; 97530; J0690; J1100; J1885; J2001; J2405

== ENCOUNTER 2021-01-06 11:47 | Outpatient (CLI) | payer MEDICARE, BC, SELFPAY ==
--- NOTE | 2021-01-06 09:30 | DI.RAD_ITS ---
Exam(s) XR KNEE LT 1V EXAM: XR KNEE LT 1V CLINICAL HISTORY: 1st post op L TKA. TECHNIQUE: 2D digital imaging was performed. COMPARISON: CR XR KNEE LT 1V from 12/17/2020 FINDINGS: Single lateral view reveals satisfactory position of the components of the prosthesis. No fracture o r loosening evident on this single view. IMPRESSION: DATA REPOSITORY: RADIATION DOSE DELIVERED:
--- NOTE | 2021-01-06 09:30 | DI.RAD_ITS ---
Exam(s) XR STANDING ALIGNMENT EXAM: XR STANDING ALIGNMENT CLINICAL HISTORY: 1ST POST OP L TKA. TECHNIQUE: 2D digital imaging was performed. COMPARISON: CR XR STANDING ALIGNMENT from 12/17/2020 FINDINGS: There has been interval placement of a left knee prosthesis. Components appear to be in satisfactory position alignment. No fracture or loosening evident. Some degenerative changes noted in the media l compartment of the opposite-right knee with mild medial joint space narrowing and marginal osteophy molina. Lateral compartment exhibits normal height. There is some degenerative changes in both hips, slightly more prominent on the right side. Ankles a ppear unremarkable. Talar domes unremarkable. No osseous lesions. IMPRESSION: DATA REPOSITORY: RADIATION DOSE DELIVERED:
== END 2021-01-06 11:48 | disposition home or self-care (01) ==
LOC: DIORS 11:48
PROVIDERS: PCP Internal Medicine Hospice and Palliative Medicine; Referring Provider Internal Medicine Hospice and Palliative Medicine; Visit Provider Physician Assistant
DX: Z96.652 Presence of left artificial knee joint (principal); Z47.1 Aftercare following joint replacement surgery
CPT/HCPCS: 73560; 77073

== ENCOUNTER → 2021-01-13 13:58 | Outpatient (BNVA) | payer MEDICARE, BC, SELFPAY | PROVIDERS: PCP Internal Medicine Hospice and Palliative Medicine; Referring Provider Internal Medicine Hospice and Palliative Medicine; Visit Provider Student in an Organized Health Care Education/Training Program | DX: Z47.1 Aftercare following joint replacement surgery (principal); Z96.652 Presence of left artificial knee joint ==

== ENCOUNTER → 2021-02-03 13:20 | Outpatient (BNVA) | payer MEDICARE, BC, SELFPAY | PROVIDERS: PCP Internal Medicine Hospice and Palliative Medicine; Referring Provider Internal Medicine Hospice and Palliative Medicine; Visit Provider Student in an Organized Health Care Education/Training Program | DX: Z47.1 Aftercare following joint replacement surgery (principal); Z96.652 Presence of left artificial knee joint ==

== ENCOUNTER → 2021-03-17 13:03 | Outpatient (BNVA) | payer MEDICARE, BC, SELFPAY | PROVIDERS: PCP Internal Medicine Hospice and Palliative Medicine; Referring Provider Internal Medicine Hospice and Palliative Medicine; Visit Provider Student in an Organized Health Care Education/Training Program | DX: Z47.1 Aftercare following joint replacement surgery (principal); Z96.652 Presence of left artificial knee joint; M53.3 Sacrococcygeal disorders, not elsewhere classified | CPT/HCPCS: 99213 ==

== ENCOUNTER 2021-05-13 01:10 | Outpatient (CLI) | payer MEDICARE, BC, SELFPAY ==
--- NOTE | 2021-05-13 10:45 | DI.MRI_ITS ---
Exam(s) MR LUMBAR SPINE WO EXAM: MR LUMBAR SPINE WO CLINICAL HISTORY: LEG PAIN, [id number]. TECHNIQUE: Multiplanar multisequence MRI of the Lumbar spine was performed. COMPARISON: MR MR LUMBAR SPINE WO from 07/31/2019 FINDINGS: Bones: The last intervertebral disc space is designated the L5/S1 level for the numbering purpose of this examination. The vertebral body heights are well maintained. Alignment is satisfactory. There are degenerative endplate signal changes seen particularly at L3-4, L4-5 and L5-S1. Cord: The conus tip ends at the L1 level. It is of normal size and signal intensity. T12-L1: No disc herniations or bulges are present. No central spinal canal or neural foraminal stenos is. L1-2: No disc herniations or bulges are present. No central spinal canal or neural foraminal stenosis . L2-3: There is a diffuse disc bulge. There is a focal disc herniation paracentral to the right. The re is mild narrowing of the central spinal canal. Mild narrowing of the right neural foramen is note d. No significant left neural foraminal stenosis is present. L3-4: There is a diffuse disc bulge. There are hypertrophic changes of the facets and ligamentum fla vum. These all contribute to cause moderate central spinal canal stenosis. There is moderate bilate ral neural foraminal stenosis. L4-5: There is a diffuse disc bulge. There are hypertrophic changes of the facets and ligamentum fla vum. There is mild narrowing of the central spinal canal. There is mild narrowing of the right neur al foramen. No significant left neural foraminal stenosis is present. L5-S1: There is a mild diffuse disc bulge the. There are hypertrophic changes of the facets. No sig nificant central spinal canal stenosis is seen. No neural foraminal stenosis is present. Soft tissues: The visualized SI joints and sacrum are well maintained. The paraspinal soft tissues ar e unremarkable. Visualized abdominal organs: Diverticulosis of the colon, but no evidence of diverticulitis. There i s 1.5 cm simple cyst in the left kidney. IMPRESSION: 1. Multilevel degenerative changes in the lumbar spine. 2. Findings are most marked at L3-L4 where there is moderate central spinal canal stenosis and bilate ral neural foraminal stenosis. 3. At L2-L3 there is a disc herniation paracentral to the right. There is mild narrowing of the cent ral spinal canal and right neural foramen. DATA REPOSITORY:
== END 2021-05-13 01:30 ==
PROVIDERS: PCP Internal Medicine Hospice and Palliative Medicine; Visit Provider Physician Assistant Surgical
DX: M79.604 Pain in right leg (principal); M51.37 Other intervertebral disc degeneration, lumbosacral region; M47.817 Spondylosis without myelopathy or radiculopathy, lumbosacral region; M99.83 Other biomechanical lesions of lumbar region
CPT/HCPCS: 72148

== ENCOUNTER 2021-12-29 13:10 | Outpatient (CLI) | payer MEDICARE, BC, SELFPAY ==
--- NOTE | 2021-12-29 12:52 | DI.RAD_ITS ---
Exam(s) XR KNEE LT 2V AP,LAT EXAM: XR KNEE LT 2V AP,LAT INDICATION: ANNUAL F/U L TKA. COMPARISON: CR XR KNEE LT 1V from 01/06/2021 TECHNIQUE: 2D digital imaging was performed. Two views. FINDINGS: There has been no change in the total knee prosthesis or appearance of the surrounding bone. DATA REPOSITORY: RADIATION DOSE DELIVERED:
== END 2021-12-29 13:11 | disposition home or self-care (01) ==
LOC: DIORS 13:11
PROVIDERS: PCP Internal Medicine Hospice and Palliative Medicine; Referring Provider Internal Medicine Hospice and Palliative Medicine; Visit Provider Student in an Organized Health Care Education/Training Program
DX: M70.61 Trochanteric bursitis, right hip (principal); M53.3 Sacrococcygeal disorders, not elsewhere classified; Z96.652 Presence of left artificial knee joint
CPT/HCPCS: 20610; 73560; J1040

== ENCOUNTER 2023-04-14 11:46 | Outpatient (REF) | payer MEDICARE, BC, SELFPAY ==
[2023-04-14 14:39] LABS: Source Nasal/Nares
[2023-04-14 15:34] LABS: COVID-19 PCR Negative (Negative)
== END 2023-04-14 11:47 | disposition home or self-care (01) ==
LOC: LBN 11:46
PROVIDERS: PCP Internal Medicine Hospice and Palliative Medicine; Visit Provider Physician Assistant Medical
DX: B34.9 Viral infection, unspecified (principal); Z20.822 Contact with and (suspected) exposure to COVID-19
CPT/HCPCS: 87635

== ENCOUNTER 2024-10-13 13:35 | Emergency (ER) | payer MEDICARE, BC, SELFPAY ==
[2024-10-13 13:38] VITALS: BP 154/91; PULSE 73; RESP 16; TEMP 37.1; O2SAT 98
--- NOTE | 2024-10-13 14:00 | DI.CT_ITS ---
Exam(s) CT HEAD CERV SPINE FACIAL WO EXAM: CT HEAD CERV SPINE FACIAL WO CLINICAL HISTORY: fall, ecchymosis and nasal deformity. TECHNIQUE: Imaging Protocol: Axial computed tomography images with coronal and sagittal reformatted images were created and reviewed COMPARISON: CT HEAD WITHOUT CONTRAST from 03/03/2009 FINDINGS: CT BRAIN: There are no skull fractures nor fluid in the visualized paranasal sinuses. There is no evidence of intracranial hemorrhage, mass effect, or shift of midline structures. There are no extra-axial fluid collections. The ventricles are not enlarged or shifted and there is no blood within the ventricular system nor within the basal cisterns. Incidentally noted is evidence of prior bilateral cataract surgery and there is right orbital scleral banding evident CT MAXILLOFACIAL BONES: There is no evidence of facial fractures nor fluid in the visualized paranasal sinuses. there is no evidence of orbital blowout fracture. Bladder medic arches and other facial bones are intact. There are degenerative changes in both temporomandibular joints. No other significant mandible findings. Nasal septum is deviated towards the left. Subtle suggestion a possible nondisplaced focal fracture in the right nasal bone. This is subtle. CT CERVICAL SPINE: There is no evidence of acute fracture nor l significant isthesis. No significant prevertebral soft tissue swelling. There is chronic disc space narrowing at C5-6 and C6-7 evident. Also Luschka joint osteophytes bilaterally C5-6 level. There is multilevel facet arthropathy. There is also fusion of the facet joints bilaterally at C3-4 level. There is no evidence of facet joint malalignment. No acute osseous compromise of the canal. . IMPRESSION: No acute intracranial findings on this noninfused CT scan of the brain. There is a very subtle suggestion of a nondisplaced fracture of the right nasal bone. No displacement or depression. No evidence of cervical spine fracture, malalignment, nor acute compromise of the cervical spinal canal. Multilevel chronic degenerative disc disease and facet arthropathy. No facet malalignment. Report called by myself to ER 10/13/2024 at 2:50 p.m. RADIATION DOSE DELIVERED: 1,918.5mGy.cm Total DLP DATA REPOSITORY: All CT scans at this facility are submitted to the National Radiology Data Registry (NRDR) Dose Index Registry (DIR) with the [employer] ([employer]). RADIATION OPTIMIZATION: All CT scans at this facility use at least one of these dose optimization techniques: automated exposure control; mA and/or kV adjustment per patient size (includes targeted exams where dose is matched to clinical indication); or iterative reconstruction.
--- NOTE | 2024-10-13 14:00 | DI.RAD_ITS ---
Exam(s) XR KNEE RT 3V AP,LAT,MINDY EXAM: XR KNEE RT 3V AP,LAT,MINDY CLINICAL HISTORY: pain post fall. TECHNIQUE: 2D digital imaging was performed. COMPARISON: CR XR KNEE LT 2V AP,LAT from 12/29/2021 FINDINGS: 3 views No evidence of acute fracture nor right knee joint effusion. However, there is almost taua-us-cdbu degenerative narrowing of the medial compartment. Lateral compartment appears maintained. There is also degenerative change in the patellofemoral compartment. Bone density normal. No osseous lesions. No radiopaque foreign bodies IMPRESSION: Advanced degenerative changes in the medial compartment. No evidence of acute fracture or knee joint effusion. DATA REPOSITORY: RADIATION DOSE DELIVERED:
[2024-10-13] MEDS: Acetaminophen 325 MG TAB 650 MG PO (14:19)
[2024-10-13 14:39] VITALS: BP 169/96; PULSE 67; RESP 18; O2SAT 99
[2024-10-13 15:32] VITALS: BP 133/70; PULSE 62; RESP 18; TEMP 36.2; O2SAT 99
--- NOTE | 2024-10-13 15:57 | W.ED.GENAD ---
Discharge Plan Disposition Patient Disposition: Home Condition: Stable Discharge Details Clinical Impression: Closed fracture nasal bone, Injury of knee, right, Fall Primary Care Provider: Judson Jung ED Provider: Ying Ambriz Home Meds and New Rx's Prescriptions: Continued multivitamin Capsule 1 cap PO DAILY flaxseed oil [Renner-3 Flaxseed Oil] 1,000 mg capsule 1,000 mg PO DAILY Rx Instructions: administer with a meal ferrous sulfate 325 mg (65 mg iron) tablet 325 mg PO DAILY Qty: 90 4RF albuterol sulfate [ProAir HFA] 8.5 GM HFA aerosol inhaler 1 - 2 puff Inhalation QID PRNQty: 1 acetaminophen [Tylenol Extra Strength] 500 mg tablet 500 mg PO Q6H PRNQty: 90 0RF Discharge Instructions Instructions: Knee Pain ED, Nose Fracture ED Additional Instructions: Wear your knee brace for the next several days as needed for stability and pain Refrain from blowing your nose or doing a lot of bending follow-up with ENT regarding nasal bone fx You likely have a right sided nasal bone fracture this should heal without any intervention but I will list ENT to follow-up with If you develop bleeding, you may use a nasal clamp or some Afrin nasal spray Should you develop persistent pain or worsening symptoms I recommend following up with orthopedics regarding your knee pain Referrals: Judson Jung [Primary Care Provider, Medicine] Xavier Vallecillo MD [ [facility] STAFF PHYSICIAN, Orthopaedic Surgical] Akshat Emery MD [ [facility] STAFF PHYSICIAN, ENT Surgical] HPI General Date/Time Provider Initiated Documentation: 10/13/24 13:42. HPI Narrative: The patient is a 78-year-old female who presents after a mechanical fall. She tripped over a lawnmower and fell face first in the garage, landing on her nose. She did not lose consciousness but reports a headache and some nasal pain. She also injured her right knee. Her tetanus vaccination is up to date. She arrived ambulatory via private vehicle. There is no history of coagulopathy. Related Data Home Medications ?Medication ?Instructions ?Recorded ?Confirmed albuterol sulfate 90 mcg/actuation 1 - 2 puff inhalation QID PRN ##1 10/18/17 10/13/24 aerosol inhaler (ProAir HFA) ferrous sulfate 325 mg (65 mg 325 mg PO DAILY #90 tabs 11/01/19 10/13/24 iron) tablet flaxseed oil 1,000 mg capsule 1,000 mg PO DAILY 01/11/20 10/13/24 (Renner-3 Flaxseed Oil) multivitamin 1 cap PO DAILY 01/11/20 10/13/24 acetaminophen 500 mg tablet 500 mg PO Q6H PRN #90 tabs 12/24/20 10/13/24 (Tylenol Extra Strength) Previous Rx's ?Medication ?Instructions ?Recorded ferrous sulfate 325 mg (65 mg 325 mg PO DAILY #90 tabs 11/01/19 iron) tablet acetaminophen 500 mg tablet 500 mg PO Q6H PRN #90 tabs 12/24/20 (Tylenol Extra Strength) Allergies Allergy/AdvReac Type Severity Reaction Status Date / Time No Known Allergies Allergy Verified 10/13/24 13:41 General Stated Complaint: Fall/Non TraumaCriteria CHAUNCEY: 3 Exam Narrative Exam Narrative: Patient is alert and oriented, GCS 15. Patient is answering questions appropriately. HEENT exam shows accommodation, ecchymosis noted to right periorbital region, no raccoon eyes, no septal hematoma, ecchymosis and swelling to nasal bridge. No deformity. No maxillary tenderness. Oropharynx is patent, uvula is midline. No hemotympanum. No cervical spine tenderness. Lungs are clear to auscultation. No chest wall tenderness or ecchymosis. No abdominal tenderness or visual evidence of trauma. Right knee with abrasion, tenderness. No significant swelling. No tenderness to right hip, right ankle, neurovascularly intact all four extremities. Patient is ambulatory with a steady but antalgic gait. Course Vital Signs Vital signs: Vital Signs Temperature 37.1 C 10/13/24 13:38 Pulse 73 10/13/24 13:38 Respiratory Rate 16 10/13/24 13:38 Blood Pressure 154/91 H 10/13/24 13:38 Pulse Oximetry 98 10/13/24 13:38 Temperature 36.2 C L 10/13/24 15:32 Pulse 62 10/13/24 15:32 Respiratory Rate 18 10/13/24 15:32 Blood Pressure 133/70 10/13/24 15:32 Blood Pressure Mean 120 10/13/24 14:39 Blood Pressure Position Sitting 10/13/24 13:38 Pulse Oximetry 99 10/13/24 15:32 Oxygen Delivery Method Room Air 10/13/24 14:39 Oxygen Flow Rate 0 10/13/24 14:39 Pain Level 9 10/13/24 13:38 Medical Decision Making Imaging CT facial bones, head and cervical spine showed mildly displaced fracture to right naris, otherwise negative. X-ray of the right knee showed no evidence of acute fracture. Initial Assessment: 78-year-old female presents after mechanical fall, tripped over a lawnmower, fell face first in garage landing on her nose. Denies loss of consciousness. Headache and nasal pain, injured right knee. Tetanus up to date. Ambulatory on arrival via private vehicle. No history of coagulopathy. No cervical spine tenderness. Alert and oriented, GCS 15, ambulatory, steady but antalgic gait. Ecchymosis noted to right periorbital region, no raccoon eyes, no septal hematoma, ecchymosis and swelling to nasal bridge. No deformity. No maxillary tenderness. Oropharynx patent, uvula midline. Answering questions appropriately. No hemotympanum. No cervical spine tenderness. No chest wall tenderness or ecchymosis. Lungs clear to auscultation. No abdominal tenderness or visual evidence of trauma. Right knee with abrasion, tenderness. No significant swelling. No tenderness to right hip, right ankle, neurovascularly intact all four extremities. ED Course: - CT facial bones, head, and cervical spine: Mildly displaced fracture to right naris, otherwise negative per radiology interpretation, reviewed by me. - X-ray: No evidence of acute fracture per radiology interpretation, reviewed by me. - Patient placed in hinged knee brace for comfort. - Tetanus up to date. - Advised Tylenol for pain management, avoid Motrin due to bruising risk. - Reviewed nasal fracture precautions. Final Assessment: Patient with nasal bone fracture and right knee injury. CT confirmed mildly displaced fracture to right naris. X-ray showed no acute fracture in the knee. Provided hinged knee brace for comfort. Advised Tylenol for pain management and reviewed nasal fracture precautions. Clinical Impression: - Nasal bone fracture - Right knee injury Disposition: - Discharge: Patient discharged with hinged knee brace and instructions for pain management. - Follow-Up: Follow-up for nasal bone fracture. MDM Components Evaluation: - Number of Differential Diagnoses or Management Options: Nasal bone fracture, right knee injury. - Amount and Complexity of Data Reviewed: CT facial bones, head, and cervical spine; X-ray. - Risk of Complication and Morbidity or Mortality: Risk of bruising with Motrin, managed with Tylenol. PFSH All Active Problems (Updated 10/13/24 @ 15:15 by ANDRE Paz) Fall (Acute) Injury of knee, right (Acute) Closed fracture nasal bone (Acute) Greater trochanteric bursitis of right hip (Acute) Pain of right sacroiliac joint (Acute) Arthritis (Acute) Sessile colonic polyp (Acute) Tubulovillous adenoma of colon (Acute) Tubular adenoma of colon (Acute) Sensorineural hearing loss of both ears (Chronic) Dysfunction of both eustachian tubes (Chronic) Sensorineural hearing loss, asymmetrical (Acute 09/11/13) Recurrent UTI (urinary tract infection) (Acute 07/06/17) Post-nasal drip (Acute 04/19/15) [facility] [place] [facility] [place] Flut[place] Right rotator cuff tendonitis (Chronic) Injected: 09/15/2018 Chronic rhinitis (Acute) Sneezing (Acute) Itchy, watery, and red eye (Acute) History of bursectomy (Acute) S/P IT band tenotomy and excision of trochanteric bursa DOS: 11/21/2018 Dr. Styles Allergic rhinitis due to allergen (Acute) Pulmonary nodule, right (Acute) Multinodular goiter (Acute) Hyperlipidemia (Acute 03/11/00) Thoracic aortic aneurysm without rupture (Acute) CT chest: 4.2cm 4cm on echocardiogram 2017 Mitral valve regurgitation (Acute) per echo 1984 Medical History (Updated 10/13/24 @ 15:15 by ANDRE Paz) Right hip pain pt. 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 no hardware (arthroscopy) Family History Mother Personal history of malignant neoplasm KIDNEY Father TB (pulmonary tuberculosis) Alcohol abuse Emphysema lung Smoker Brother No problems noted. Grandfather No problems noted. Grandfather Stroke Grandmother No problems noted. Grandmother No problems noted. Social History Smoking/Tobacco Use Status: Never Smoking risk assessment performed?: Yes Alcohol Intake: current Alcohol Intake frequency: a few times a month Alcohol type: wine Drug use: Never Substance use type: does not use Adopted: No Caregiver/Support person: No Household members: spouse Do you need help understanding health information?: Rarely Pets and animals: Yes Pets and animals: cat(s) and dog(s) Sexually active: Yes Current gender identity: female What is your relationship status?: Panel score (0-1 are the most socially isolated patients): 1 What type of physical activity do you participate in: walking Duration: > 90 minutes/day Frequency: daily Seatbelt use: always Drive intox or ride w/intox wrecker driver: No Do you feel safe at home: Yes Do you feel safe in your relationship?: Yes
--- NOTE | 2024-10-30 10:47 | NUR.NOTE ---
Accessed Pt chart to print the discharge summary for [facility]
== END 2024-10-13 15:39 | disposition home or self-care (01) ==
PROVIDERS: Emergency Provider Physician Assistant; PCP Internal Medicine
DX: S80.211A Abrasion, right knee, initial encounter (principal); S02.2XXA Fracture of nasal bones, initial encounter for closed fracture; S00.11XA Contusion of right eyelid and periocular area, initial encounter; W01.198A Fall on same level from slipping, tripping and stumbling with subsequent striking against other object, initial encounter; Y93.01 Activity, walking, marching and hiking
CPT/HCPCS: 73562; 99284; 70450; 70486; 72125

== ENCOUNTER → 2025-03-19 08:28 | Outpatient (BNVA) | payer MEDICARE, BC, SELFPAY | PROVIDERS: PCP Internal Medicine; Referring Provider Internal Medicine; Visit Provider Physician Assistant | DX: M17.11 Unilateral primary osteoarthritis, right knee (principal) | CPT/HCPCS: 20610; J1010 ==